=== PATIENT | female | born 1995 | race Caucasian/White ===

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

== ENCOUNTER 2017-02-02 13:42 | Emergency (ER) | payer OTHER ==
[~2017-02-02] VITALS: Ht 162.6 cm; Wt 148.0 kg
[~2017-02-02 13:42] MED LIST changes: +PANT40TA2 PO; -PRT/40 PO
[2017-02-02 13:45] VITALS: Ht 162.6 cm; Wt 148.0 kg
[2017-02-02] MEDS ORDERED: SODIUM CHLORIDE 0.9% 1000ML 1,000 ML IV STA (14:53)
[2017-02-02] MEDS ORDERED: ALBUT/IPRATROP 3MG/0.5MG NEB 3 ML VIAL INH STA (14:53)
--- NOTE | 2017-02-02 14:53 | EMERGENCY ROOM VISIT NOTE ---
History First contact with patient: 14:44 Chief Complaint: SHORTNESS OF BREATH Stated Complaint: COUGH,SOB,BODY ACHES,FEVER History of Present Illness The patient is a 21 year old female who presents to the Emergency Room via private vehicle with complaints of "cough, shortness of breath, body aches, fever". The patient states that 1 week ago she dropped a migraine headache. She states that 3 days ago she developed vomiting, and woke up yesterday with diffuse body aches. Then chest tightness and no ear pain. She states that her throat feels swollen and she has a history of asthma. She cannot get in to see her medical services coordinator being as though it is Saturday. She feels as though this illness is making her asthma worse. She at home uses Dulera and Spiriva. She denies any abdominal pain, urinary symptoms, vaginal discharge. She last used ibuprofen 6 AM this morning. Review of Systems A complete 10-point Review of Systems was discussed with the patient, with pertinent positives and negatives listed in the History of Present Illness. All remaining Review of Systems questions can be considered negative unless otherwise specified. 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 (4) GERD (gastroesophageal reflux disease) (5) Nicotine Dependence, Cigarettes, Uncomplicated (6) Obesity, Nos (7) Pneumonia (8) Pneumonia, Unspecified Organism (9) Polycystic Ovarian Syndrome (10) Sleep Apnea, Unspecified Family History Cancer Diabetes mellitus Gallbladder disease Heart disease Hypertension Kidney disease Kidney stones Lung disease Seizures Social History Smoking Status: Current Every Day Smoker Alcohol Use: none Drug Use: none Marital Status: single Housing Status: lives with family Occupation Status: student Current/Historical Medications Scheduled Control Pills ( Control Pills), 1 TAB PO DAILY Cholecalciferol (Vitamin D3), 2,000 INTER.UNIT PO DAILY Doxycycline (Monohydrate) (Doxycycline), 100 MG PO BID Levofloxacin (Levaquin), 1 TAB PO DAILY Loratadine (Claritin), 10 MG PO DAILY Metformin HCl (Metformin HCl), 250 MG PO BID Mometasone Furoate-Formoterol (Dulera 200/5 Mcg), 2 PUFFS INH BID Montelukast Sod (Montelukast Sodium), 10 MG PO QPM Multiple Vitamins W/ Minerals (Hair/Skin/Nails), 1 TAB PO DAILY Pantoprazole (Pantoprazole Sodium), 40 MG PO QAM Prednisone (Prednisone), 0 PO DAILY Ranitidine Hcl (Zantac), 300 MG PO HS Scheduled PRN Acetaminophen (Tylenol), 325-650 MG PO DIRECTED PRN for Pain or Fever Albuterol Hfa (Ventolin Hfa), 2 PUFFS INH Q4H PRN for Wheezing Epinephrine (Epipen 2-Jorge), 0.3 MG IM UD PRN for ALLERGIC REACTION Ipratropium [place] (Atrovent 0.02% Soln), 1 VIAL NEB Q4H PRN for SOB/Wheezing Ipratropium-Albuterol (Combivent Respimat), 1 PUFF INH Q4H PRN for Cough,SOB/ Wheezing Levalbuterol Hcl (Levalbuterol), 1.25 MG NEB Q4H PRN for SOB/Wheezing Naproxen (Naprosyn), 500 MG PO BID PRN for Pain Physical Exam Vital Signs Date Time Temp Pulse Resp B/P (MAP) Pulse Ox O2 Delivery O2 Flow Rate FiO2 02/02/17 17:57 102 20 136/78 96 Room Air 02/02/17 17:05 102 141/77 96 02/02/17 16:35 108 95 02/02/17 16:05 107 93 02/02/17 15:30 20 143/87 02/02/17 15:23 110 02/02/17 15:18 20 110/71 02/02/17 15:12 94 Room Air 02/02/17 13:45 37.1 116 20 136/76 94 Room Air Physical Exam VITAL SIGNS - Vital signs and nursing notes were reviewed. Stable. Tachycardic. O2 sat 94%. GENERAL -21-year-old female appearing her stated age who is in no acute distress. Communicates well with provider and answers questions appropriately. SKIN - Without rashes. No petechial rashes. HEAD - NC/AT. EYES - PERRL with EOMI bilaterally. Sclera anicteric. EARS - No deformities of external structures noted on gross examination bilaterally. No pain elicited with palpation of the tragus bilaterally. External auditory canals without discharge or otorrhea. Tympanic membranes pearly nguyen without retraction or bulging. No fluid or purulent material visualized behind the TM. Handle of malleus, umbo, cone of light, pars tensa/ flaccid all easily visualized. NOSE - Midline and without cyanosis. No epistaxis or purulent drainage noted. MOUTH/OROPHARYNX - Without perioral cyanosis. NECK - Neck with FROM. Supple to palpation. No lymphadenopathy noted. No nuchal rigidity. LUNGS - Chest wall symmetric without accessory muscle use, intercostals retractions, or central cyanosis. Normal vesicular breath sounds CTA B/L. No wheezes, rales, or rhonchi appreciated. CARDIAC - RRR with S1/S2. No murmur, rubs, or gallops appreciated. ABDOMEN - Abdominal contour normal without pulsations or visible masses. BS normoactive all four quadrants. No tenderness, palpable masses, hepatosplenomegaly, or ascites noted. EXTREMITIES - No clubbing or peripheral cyanosis. No pretibial edema present. + 5/5 strength noted in UE/LE bilaterally. NEUROLOGIC - Cranial nerves II through XII grossly intact. Sensory intact to light touch throughout. PSYCH - A&Ox3 and cooperates fully with examiner. Pt is very pleasant and interacts well with examiner. Medical Decision & Procedures ER Provider Diagnostic Interpretation: CT ANGIOGRAPHY OF THE CHEST, PULMONARY EMBOLUS PROTOCOL CLINICAL HISTORY: Dyspnea. Fever. COMPARISON STUDY: Chest CT August 04, 2016. TECHNIQUE: Following IV administration of 98 mL of Optiray-320, helical axial images of the chest were obtained utilizing the pulmonary embolus protocol. Maximal intensity projections and sagittal and coronal reformats were viewed on an independent 3D workstation. IV contrast was administered without complication. A dose lowering technique was utilized adhering to the principles of ALARA. CT DOSE: 656.75 mGy.cm FINDINGS: No central pulmonary embolus is identified. The remainder of the pulmonary arteries are inadequately assessed due to respiratory motion artifact and suboptimal opacification. There is no evidence of thoracic aortic dissection. Size of the heart is normal. There is no pericardial effusion. There is a mildly enlarged right infrahilar lymph node that measures 1 cm in short axis diameter. There is mild bronchial wall thickening with mucus within multiple bilateral lower lobe segmental bronchi. There is mild groundglass opacity within the right middle and right lower lobes. There is no confluent consolidation. No pneumothorax or pleural effusion is present. Bony thorax is unremarkable. There is fatty infiltration of the liver. IMPRESSION: 1. Exam significantly compromised by respiratory motion artifact. No central pulmonary embolus. Remainder of pulmonary arteries inadequately assessed due to artifact. 2. Mild bronchial wall thickening with mucus within multiple bilateral lower lobe segmental bronchi. 3. Minimal groundglass opacity within the right lower lobe and right middle lobe which could reflect atelectasis, air trapping or a mild infectious process. 4. Mildly enlarged right infrahilar lymph node which is nonspecific but likely reactive. Electronically signed by: Jl Jorge M.D. 02/02/2017 5:51 PM Dictated Date/Time: 02/02/2017 5:41 PM CHEST 2 VIEWS ROUTINE CLINICAL HISTORY: Cough, congestion. COMPARISON STUDY: Chest CT August 04, 2016 and chest radiograph November 13, 2016. FINDINGS: Lung volumes are normal. No pneumothorax or pleural effusion is present. There is mild right lower lung airspace opacity. This is likely within the right middle lobe. There is no evidence of pulmonary edema. No pneumothorax or pleural effusion is present. Cardiomediastinal silhouette is normal. There is mild left suprahilar opacity. IMPRESSION: 1. Mild hazy left suprahilar opacity. This could be artifactual however a small area of pneumonia could appear similar. 2. Minimal right middle lobe opacity which favors atelectasis. Electronically signed by: Jl Jorge M.D. 02/02/2017 4:41 PM Dictated Date/Time: 02/02/2017 4:38 PM Laboratory Results 02/02/17 15:05 Red Blood Count 4.72, Mean Corpuscular Volume 85.6, Mean Corpuscular Hemoglobin 28.8, Mean Corpuscular Hemoglobin Concent 33.7, Mean Platelet Volume 9.6, Neutrophils (%) (Auto) 77.5, Lymphocytes (%) (Auto) 8.4, Monocytes (%) (Auto) 9.3, Eosinophils (%) (Auto) 4.2, Basophils (%) (Auto) 0.4, Neutrophils # (Auto) 6.93, Lymphocytes # (Auto) 0.75, Monocytes # (Auto) 0.83, Eosinophils # (Auto) 0.38, Basophils # (Auto) 0.04 02/02/17 15:05 Test 02/02/17 15:05 02/02/17 15:38 White Blood Count 8.95 K/uL (4.8-10.8) Red Blood Count 4.72 M/uL (4.2-5.4) Hemoglobin 13.6 g/dL (12.0-16.0) Hematocrit 40.4 % (37-47) Mean Corpuscular Volume 85.6 fL (80-100) Mean Corpuscular Hemoglobin 28.8 pg (25-34) Mean Corpuscular Hemoglobin Concent 33.7 g/dl (32-36) Platelet Count 317 K/uL (130-400) Mean Platelet Volume 9.6 fL (7.4-10.4) Neutrophils (%) (Auto) 77.5 % Lymphocytes (%) (Auto) 8.4 % Monocytes (%) (Auto) 9.3 % Eosinophils (%) (Auto) 4.2 % Basophils (%) (Auto) 0.4 % Neutrophils # (Auto) 6.93 K/uL (1.4-6.5) Lymphocytes # (Auto) 0.75 K/uL (1.2-3.4) Monocytes # (Auto) 0.83 K/uL (0.11-0.59) Eosinophils # (Auto) 0.38 K/uL (0-0.5) Basophils # (Auto) 0.04 K/uL (0-0.2) RDW Standard Deviation 40.3 fL (36.4-46.3) RDW Coefficient of Variation 12.8 % (11.5-14.5) Immature Granulocyte % (Auto) 0.2 % Immature Granulocyte # (Auto) 0.02 K/uL (0.00-0.02) Anion Gap 6.0 mmol/L (3-11) Est Creatinine Clear Calc Drug Dose 168.6 ml/min Estimated GFR () 127.7 Estimated GFR (Non- 110.2 BUN/Creatinine Ratio 8.5 (10-20) Calcium Level 8.6 mg/dl (8.5-10.1) Magnesium Level 1.9 mg/dl (1.8-2.4) Total Bilirubin 0.2 mg/dl (0.2-1) Aspartate Amino Transf (AST/SGOT) 19 U/L (15-37) Alanine Aminotransferase (ALT/SGPT) 33 U/L (12-78) Alkaline Phosphatase 47 U/L (45-117) Troponin I < 0.015 ng/ml (0-0.045) Total Protein 6.9 gm/dl (6.4-8.2) Albumin 3.4 gm/dl (3.4-5.0) Globulin 3.5 gm/dl (2.5-4.0) Albumin/Globulin Ratio 1.0 (0.9-2) Influenza Type A Antigen Neg for Influ A (NEG) Influenza Type B Antigen Neg for Influ B (NEG) Urine Color YELLOW Urine Appearance CLEAR (CLEAR) Urine pH 7.5 (4.5-7.5) Urine Specific [place] 1.018 (1.000-1.030) Urine Protein NEG (NEG) Urine Glucose (UA) NEG (NEG) Urine Ketones NEG (NEG) Urine Occult Blood NEG (NEG) Urine Nitrite NEG (NEG) Urine Bilirubin NEG (NEG) Urine Urobilinogen NEG (NEG) Urine Leukocyte Esterase SMALL (NEG) Urine WBC (Auto) 5-10 /hpf (0-5) Urine RBC (Auto) 0-4 /hpf (0-4) Urine Hyaline Casts (Auto) 1-5 /lpf (0-5) Urine Epithelial Cells (Auto) >30 /lpf (0-5) Urine Bacteria (Auto) NEG (NEG) Urine Test NEG (NEG) Medications Administered Medications (Trade) Dose Ordered Sig/Miguel Route Start Time Stop Time Status Last Admin Dose Admin Sodium Chloride 1,000 ml @ 999 mls/hr Q1H1M STAT IV 02/02/17 14:53 02/02/17 15:53 DC 02/02/17 15:08 999 MLS/HR Albuterol/ Ipratropium (Duoneb) 3 ml NOW STAT INH 02/02/17 14:53 02/02/17 14:56 DC 02/02/17 15:08 3 ML Ketorolac Tromethamine (Toradol Inj) 30 mg NOW STAT IV 02/02/17 14:58 02/02/17 14:59 DC 02/02/17 15:10 30 MG Medical Decision Patient was seen and evaluated as above. She presents to us today with cough, shortness of breath, body aches and fever. I am familiar with the patient case from her previous visit. She does have a history of asthma of which at times can be debilitating. IV access was initially, and the above workup was performed. She is given Toradol for pain, as well as a DuoNeb and fluids. She was reevaluated and feeling much better. There is no evidence of meningitis or encephalitis on exam. She was clinically declined lumbar puncture. CBC reveals no concerning leukocytosis or anemia. Metabolic panel negative for acute process. Troponin negative. Patient urine negative for acute process. Negative for flu. Chest x-ray reveals potential pneumonia. CT scan of the chest was obtained secondary to her persistent tachycardia and her shortness of breath. This although slightly, compromised by rotation artifact, does not reveal PE. She appears stable for outpatient management and feels comfortable going home. She notes that she does not do well with azithromycin and has other allergies. She states that a regimen of prednisone, doxycycline and Levaquin are what are beneficial to her. She is well aware of the tendon rupture risk. She was aware of all risks and associated difficulties with medication. She is to follow with her medical services coordinator in the upcoming week. She is to return with worsening. She was educated upon management, educated upon worrisome symptoms which to return, had questions answered prior discharge, and was discharged home in good condition. In evaluation treatment this patient following differential diagnoses were entertained: [place], PE, acute asthma exacerbation or recurrence, pneumonia, among others. I suspect given her presentation she likely is experiencing a small pneumonia/bronchitis with an exacerbation of her asthma. Impression Primary Impression: Pneumonia Additional Impression: Asthma with exacerbation Departure Information Dispostion Home / Self-Care Condition GOOD Prescriptions Prednisone (Prednisone) 20 Mg Tab 0 PO DAILY, #18 TAB 3 DAILY FOR 3 DAYS, THEN 2 DAILY FOR 3 DAYS, THEN 1 DAILY FOR 3 DAYS. Prov: Gigi Nance PA-C 02/02/17 Levofloxacin (LEVAQUIN) 750 Mg Tab 1 TAB PO DAILY for 5 Days, #5 TAB Prov: Gigi Nance PA-C 02/02/17 Doxycycline (Monohydrate) (Doxycycline) 100 Mg Cap 100 MG PO BID for 7 Days, #14 TABS Prov: Gigi Nance PA-C 02/02/17 Referrals Jazmin Lackey D.O. (PCP) Patient Instructions My [facility] Additional Instructions You were seen in the emergency department for your fever and cough. At this time it appears to have a small pneumonia. As we discussed you're been prescribed prednisone, Levaquin and doxycycline. These are per your previous prescription from the medical services coordinator. As we discussed please be careful with the steroid in combination with the Levaquin as you are a high increased risk for tendon rupture. Please do not do any strenuous exercise or heavy lifting on this medication. I recommend rest and stay well hydrated. Please call your family doctor to schedule follow-up as well as her medical services coordinator. Please return with any new/concerning symptoms. Problem Qualifiers
[2017-02-02] MEDS ORDERED: KETOROLAC TROMETHAMINE 30 MG/ML VIAL IV STA (14:58)
[2017-02-02 15:12] VITALS: O2SAT 94
[2017-02-02] MEDS ORDERED: ACET-1311 PO (15:15)
[2017-02-02 15:24] LABS: BASO % 0.4 %; BASO ABS # 0.04 K/uL (0-0.2); COMPLETE YES; EOS % 4.2 %; HEMATOCRIT 40.4 % (37-47); IG% 0.2 %; LYMPH % 8.4 %; LYMPH ABS # 0.75 K/uL (1.2-3.4); MEAN CELL VOLUME 85.6 fL (80-100); MEAN CORPUSCULAR HEMOGLOBIN 28.8 pg (25-34); MEAN CORPUSCULAR HGB CONC 33.7 g/dl (32-36); MEAN PLATELET VOLUME 9.6 fL (7.4-10.4); MONO % 9.3 %; NEUT % 77.5 %; PLATELET COUNT 317 K/uL (130-400); RED BLOOD COUNT 4.72 M/uL (4.2-5.4); WHITE BLOOD COUNT 8.95 K/uL (4.8-10.8)
[2017-02-02 15:42] LABS: BLOOD UREA NITROGEN 7 mg/dl (7-18); BUN/CREATININE RATIO 8.5 (10-20); CALCIUM 8.6 mg/dl (8.5-10.1); CARBON DIOXIDE 25 mmol/L (21-32); CHLORIDE 105 mmol/L (98-107); CREATININE 0.78 mg/dl (0.60-1.20); GLUCOSE 92 mg/dl (70-99); MAGNESIUM 1.9 mg/dl (1.8-2.4); SODIUM 136 mmol/L (136-145)
[2017-02-02 15:46] LABS: ALKALINE PHOSPHATASE 47 U/L (45-117); ALT/SGPT 33 U/L (12-78); AST/SGOT 19 U/L (15-37)
[2017-02-02 16:13] LABS: URINE APPEARANCE CLEAR (CLEAR); URINE BILIRUBIN NEG (NEG); URINE COLOR YELLOW; URINE EPITHELIAL CELL AUTO >30 /lpf (0-5); URINE NITRITE NEG (NEG); URINE PH 7.5 (4.5-7.5); URINE SPECIFIC GRAVITY 1.018 (1.000-1.030); UROBILINOGEN NEG (NEG); ZZUR CULT IF INDIC CLEAN CATCH NO
[2017-02-02 16:23] LABS: MANUAL MICROSCOPIC REQUIRED? NO; REVIEW REQ? NO
--- NOTE | 2017-02-02 16:42 | DIAGNOSTIC IMAGING REPORT ---
CHEST 2 VIEWS ROUTINE CLINICAL HISTORY: Cough, congestion. COMPARISON STUDY: Chest CT August 04, 2016 and chest radiograph November 13, 2016. FINDINGS: Lung volumes are normal. No pneumothorax or pleural effusion is present. There is mild right lower lung airspace opacity. This is likely within the right middle lobe. There is no evidence of pulmonary edema. No pneumothorax or pleural effusion is present. Cardiomediastinal silhouette is normal. There is mild left suprahilar opacity. IMPRESSION: 1. Mild hazy left suprahilar opacity. This could be artifactual however a small area of pneumonia could appear similar. 2. Minimal right middle lobe opacity which favors atelectasis. Electronically signed by: Jl Jorge M.D. 02/02/2017 4:41 PM Dictated Date/Time: 02/02/2017 4:38 PM
[2017-02-02] MEDS ORDERED: OPTIRAY 320 IV PRN (17:15)
--- NOTE | 2017-02-02 17:52 | DIAGNOSTIC IMAGING REPORT ---
CT ANGIOGRAPHY OF THE CHEST, PULMONARY EMBOLUS PROTOCOL CLINICAL HISTORY: Dyspnea. Fever. COMPARISON STUDY: Chest CT August 04, 2016. TECHNIQUE: Following IV administration of 98 mL of Optiray-320, helical axial images of the chest were obtained utilizing the pulmonary embolus protocol. Maximal intensity projections and sagittal and coronal reformats were viewed on an independent 3D workstation. IV contrast was administered without complication. A dose lowering technique was utilized adhering to the principles of ALARA. CT DOSE: 656.75 mGy.cm FINDINGS: No central pulmonary embolus is identified. The remainder of the pulmonary arteries are inadequately assessed due to respiratory motion artifact and suboptimal opacification. There is no evidence of thoracic aortic dissection. Size of the heart is normal. There is no pericardial effusion. There is a mildly enlarged right infrahilar lymph node that measures 1 cm in short axis diameter. There is mild bronchial wall thickening with mucus within multiple bilateral lower lobe segmental bronchi. There is mild groundglass opacity within the right middle and right lower lobes. There is no confluent consolidation. No pneumothorax or pleural effusion is present. Bony thorax is unremarkable. There is fatty infiltration of the liver. IMPRESSION: 1. Exam significantly compromised by respiratory motion artifact. No central pulmonary embolus. Remainder of pulmonary arteries inadequately assessed due to artifact. 2. Mild bronchial wall thickening with mucus within multiple bilateral lower lobe segmental bronchi. 3. Minimal groundglass opacity within the right lower lobe and right middle lobe which could reflect atelectasis, air trapping or a mild infectious process. 4. Mildly enlarged right infrahilar lymph node which is nonspecific but likely reactive. Electronically signed by: Jl Jorge M.D. 02/02/2017 5:51 PM Dictated Date/Time: 02/02/2017 5:41 PM
[2017-02-02] MEDS ORDERED: PRED20TA PO (18:06)
[2017-02-02] MEDS ORDERED: LEVO750T23 PO (18:06)
[2017-02-02] MEDS ORDERED: DOXY-300 PO (18:06)
[2017-02-02 18:39] VITALS: BP 141/78; PULSE 101; TEMP 37.1; O2SAT 96
== END 2017-02-02 18:40 | disposition home or self-care (01) ==
LOC: C.EDB 13:42 → C.EDC 18:40
DX: J18.9 Pneumonia, unspecified organism (principal); J45.901 Unspecified asthma with (acute) exacerbation; K21.9 Gastro-esophageal reflux disease without esophagitis; F17.200 Nicotine dependence, unspecified, uncomplicated; Z79.3 Long term (current) use of hormonal contraceptives; Z79.52 Long term (current) use of systemic steroids; Z83.3 Family history of diabetes mellitus; Z82.49 Family history of ischemic heart disease and other diseases of the circulatory system; Z84.1 Family history of disorders of kidney and ureter; Z83.79 Family history of other diseases of the digestive system; Z83.6 Family history of other diseases of the respiratory system; Z82.0 Family history of epilepsy and other diseases of the nervous system

== ENCOUNTER 2019-03-26 08:23 | Inpatient (IN) ==
[2019-03-26] MEDS ORDERED: OXYTOCIN 30 UNITS/500 ML BAG IV PRN ×2 (20:12→20:24)
[2019-03-26 20:30] LABS: Hematocrit (blood only) 38.2 % (37-47); Hemoglobin 12.5 g/dL (12.0-16.0); Mean Corpuscular Hemoglobin 28.2 pg (25-34); Mean Platelet Volume 10.4 fL (7.4-10.4); Platelet Count 305 K/uL (130-400); RDW Coefficient of Variation 17.1 % (11.5-14.5); Red Blood Count 4.44 M/uL (4.2-5.4); White Blood Count 13.29 K/uL (4.8-10.8)
[2019-03-26] MEDS ORDERED: DINOPROSTONE 10 MG INSERT PV ONE (20:30)
[2019-03-26 20:41] LABS: Mean Corpuscular Hgb Conc 32.7 g/dL (32-36)
--- NOTE | 2019-03-26 21:07 | History & Physical Report ---
Date of Service March 26, 2019 Assessment & Plan (1) Supervision of high-risk : (2) Unfavorable cervix in term : (3) Prolonged , antepartum: -Tracing category 1 -Multiple respiratory medications. Coordinating with pharmacy to continue these medications -History of marijuana use in the first trimester , urine drug screen has been sent -Cervidil ripening for 12 hours and then assessment on whether or not to start Pitocin -All questions answered of the patient History of Present Illness Chief Complaint: Cervical ripening Primary Care Provider: Jazmin Lackey DO The patient is a 23-year-old 1 para 0 with an EDC of 22 March by 12- week ultrasound at 40+ weeks gestational age who presents today for cervical ripening. The patient is admitted for postdates induction. The patient has a history of severe asthma. She is on multiple respiratory medications which she has been throughout the . She has done fairly well throughout the with no acute asthmatic attacks. The patient's was dated by 12-week ultrasound. She has a history of depression and was on multiple medications which she discontinued with the . The patient was also using marijuana in a medical fashion. She had a positive urine drug screen at her new OB visit. Patient states that the last time she used marijuana was around late December. Laboratory values for the show blood type of O-, antibody negative RhoGam on 31 December, hepatitis B negative negative cell free DNA screening, negative maternal serum AFP, normal 1 hour Glucola x2, and a negative third trimester beta strep culture. The patient had presented to labor and delivery on 25 March for an attempt at cervical ripening. Cervical [place] could not be placed. Allergies Allergy/AdvReac Type Severity Reaction Status Date / Time bee venom protein (honey bee) Allergy Severe Swelling Verified 03/25/19 10:51 and difficulty breathing. cefuroxime Allergy Intermediate HIVES Verified 03/25/19 10:51 Cephalosporins Allergy Intermediate HIVES Verified 03/25/19 10:51 nickel Allergy Mild RASH Verified 03/25/19 10:51 ragweed pollen Allergy Unknown Asthma Verified 03/25/19 10:51 symptoms. Home Medications Home Medications Medication Instructions Recorded Confirmed Type prenat.vits,prasanna,[id number] 1 tab PO HS 10/08/18 03/26/19 History albuterol sulfate 2.5 mg/0.5 mL 2.5 mg INH QID PRN 02/27/19 03/26/19 History solution for nebulization albuterol sulfate 90 mcg/actuation 2 puffs INH QID PRN 02/27/19 03/26/19 History aerosol inhaler azelastine-fluticasone 1 spray INTNAS BID 02/27/19 03/26/19 History benralizumab 1 SQ 02/27/19 03/25/19 History budesonide-formoterol HFA 160 2 puffs INH BID 02/27/19 03/26/19 History mcg-4.5 mcg/actuation aerosol inhaler famotidine 20 mg tablet 20 mg PO DAILY 02/27/19 03/26/19 History inhalational spacing device #1 ea 02/27/19 03/25/19 History Patient History Social History Preferred Language: Greek Communication Ability: Effective [employer] Required: No Beliefs That Will Affect Care: None marital status: Single Current Living Situation: Parent, Family and Significant Other Current Living Situation Comment: LIVES WITH MOM, GRANDMOTHER, BROTHER AND BOYFRIEND Other Information That Helps Us Care for You: No Feels Safe at Home: Yes Safety Concerns: Feels Safe At This Time Smoking Status: Current every day smoker Tobacco Type: cigarettes ; Cigarettes Per Day: 7 ; Second Hand Exposure: Yes ; Hx Alcohol Use: No Hx Substance Use: No Physical Exam Constitutional: WD/WN, vitals as above Respiratory: Auscultation: lungs clear to auscultation bilaterally Cardiovascular: RRR, no murmur, no edema Extremities: no calf tenderness Gastrointestinal (Abdomen): Gravid, vertex, positive heart tones, estimated weight of 8 pounds Genitourinary: Cervix: Long thick and closed, posterior, Cervidil placed in posterior fornix wrapping around cervix Results & Data Vital Signs (Past 12 Hours) Vital Signs Temp Pulse Resp BP Pulse Ox 03/26/19 19:44 103 H 143/84 H 03/26/19 19:43 95 03/26/19 19:42 101 H 146/97 H 03/26/19 19:34 98.1 F 20 Coding Level of Care Code None Diagnoses Supervision of high-risk O09.90 Unfavorable cervix in term O34.40 Prolonged , antepartum O48.1
[2019-03-26] MEDS ORDERED: ALBUTEROL HFA INHALER 8.5 GM INH PRN (21:13)
[2019-03-26] MEDS ORDERED: IPRATROPIUM BROMIDE/ALBUTEROL respimat INH INH PRN (21:29)
[2019-03-26] MEDS ORDERED: ACETAMINOPHEN 325 MG TAB ONE (23:16)
[2019-03-26] MEDS: ACETAMINOPHEN 325 MG TAB PO PRN (23:19)
[2019-03-26 23:44] LABS: Amphetamines+Metham, Urine Neg (Neg); Barbiturates, Urine Neg (Neg); Benzodiazepine, Urine Neg (Neg); Cocaine, Urine Neg (Neg); MDMA (Ecstacy), Urine Neg (Neg); Methadone, Urine Neg (Neg); Opiate, Urine Neg (Neg); Phencyclidine, Urine Neg (Neg)
[2019-03-27] MEDS: FLUTICASONE/VILANTEROL 200/25MCG 14 PUFFS/INHALER INH SCH (08:18)
[2019-03-27] MEDS: UMECLIDINIUM BROMIDE 62.5MCG/BLISTER 7 PUFFS/INHALER INH SCH (08:18)
[2019-03-27] MEDS: LACTATED RINGER'S 1,000 ML IV PRN ×3 (08:51→19:48)
[2019-03-27] MEDS: NICOTINE 14 MG/24 HR PATCH TD SCH (08:54)
--- NOTE | 2019-03-27 08:58 | Labor Progress Brief Note ---
Date of Service March 27, 2019 Subjective Assuming care of patient. She has had a prolonged course thus far due to closed cervix, schedule based delay, Cervidil overnight. Induction for postdates in morbidly obese 23yo with severe asthma. She is frustrated, tearful at this time. Assessment & Plan (1) Unfavorable cervix in term : Kessler in place, pitocin to start now. Emotional support for patient's frustration with the long process provided. She was grateful to have a meal. Physical Exam Physical Exam: T Cat 1 [place] quiet. Cervix cl/80/-3 Cervidil removed by patient while she voided around 0730. Attempt at that time to place kessler via tactile method was unsuccessful. Patient was offered the opportunity to "take a break," have breakfast. She did so. Then at 0830 I returned and was able to place the kessler using an extra-large speculum, ring forcep on cervix, and passing kessler through os then inflating with 30cc. Results & Data Vital Signs (Past 12 Hours) Vital Signs Temp Pulse Resp BP 03/27/19 08:00 98.2 F 88 22 156/74 H 03/27/19 03:33 98.1 F 94 H 22 118/88 03/27/19 00:53 98.4 F 90 20 134/62 03/26/19 23:13 98.6 F 107 H 20 133/65 Coding Level of Care Code None Diagnoses Unfavorable cervix in term O34.40
[2019-03-27] MEDS: AMOXICILLIN 500 MG CAP PO SCH ×3 (09:40→21:35)
--- NOTE | 2019-03-27 11:44 | Labor Progress Brief Note ---
Date of Service March 27, 2019 Subjective Reason For Note: Routine Evaluation Tolerating Contractions Assessment & Plan (1) Unfavorable cervix in term : PD's IOL. Kessler and pit in place now and progress noted. Epidural on request. Physical Exam Genitourinary: Manual OB Exam: + cervical dilation (Kessler remains in place despite gentle tug. Cervix examined around kessler.) 1 cm, + cervical effacement 90% and + station high OB Exam Monitor Tracing: + external FHT monitor used, + external uterine monitor used and + category I Results & Data Vital Signs (Past 12 Hours) Vital Signs Temp Pulse Resp BP 03/27/19 10:50 90 144/81 H 03/27/19 10:48 22 03/27/19 10:30 22 03/27/19 10:00 22 03/27/19 09:38 95 H 146/95 H 03/27/19 09:37 22 03/27/19 08:00 98.2 F 88 22 156/74 H 03/27/19 03:33 98.1 F 94 H 22 118/88 03/27/19 00:53 98.4 F 90 20 134/62 Coding Level of Care Code None Diagnoses Unfavorable cervix in term O34.40
[2019-03-27] MEDS: ACETAMINOPHEN 325 MG TAB PO PRN (13:23)
[2019-03-27] MEDS ORDERED: fentaNYL citrate 100 MCG/2 ML VIAL ONE (13:45)
[2019-03-27] MEDS ORDERED: ePHEDrine sulfate 50 MG/ML AMP ONE (13:45)
[2019-03-27] MEDS ORDERED: BUPIVACAINE 0.25% 30 ML VIAL ONE (13:45)
[2019-03-27] MEDS ORDERED: fentaNYL 2MCG/ML ROPIV 1.25MG/ML 100 ML BAG EPI ONE (13:46)
--- NOTE | 2019-03-27 13:50 | Labor Progress Brief Note ---
Date of Service March 27, 2019 Subjective Tolerating Contractions Assessment & Plan (1) Unfavorable cervix in term : Patient desires epidural now, will AROM after. Physical Exam Genitourinary: Manual OB Exam: + cervical dilation (Kessler removed.) 4 cm, + cervical effacement (thicker now that kessler is out) 50% and + station high OB Exam Monitor Tracing: + external FHT monitor used, + external uterine monitor used and + category I Results & Data Vital Signs (Past 12 Hours) Vital Signs Temp Pulse Resp BP 03/27/19 13:11 22 03/27/19 11:53 87 135/79 03/27/19 11:49 98.2 F 22 03/27/19 11:41 22 03/27/19 10:50 90 144/81 H 03/27/19 10:48 22 03/27/19 10:30 22 03/27/19 10:00 22 03/27/19 09:38 95 H 146/95 H 03/27/19 09:37 22 03/27/19 08:00 98.2 F 88 22 156/74 H 03/27/19 03:33 98.1 F 94 H 22 118/88 Coding Level of Care Code None Diagnoses Unfavorable cervix in term O34.40
--- NOTE | 2019-03-27 13:54 | Anesthesiology Consultation ---
Date of Service March 27, 2019 Assessment & Plan ASA ASA3 Proposed Anesthesia Anesthesia Type: Labor Epidural Risk / Benefits Reviewed With: PT / POA / Parent / Guardian, Accepts Plan and Informed Consent Obtained History Height/Weight Height: 5 ft 4.5 in Weight: 147.418 kg Allergies Allergy/AdvReac Type Severity Reaction Status Date / Time bee venom protein (honey bee) Allergy Severe Swelling Verified 03/25/19 10:51 and difficulty breathing. cefuroxime Allergy Intermediate HIVES Verified 03/25/19 10:51 Cephalosporins Allergy Intermediate HIVES Verified 03/25/19 10:51 nickel Allergy Mild RASH Verified 03/25/19 10:51 ragweed pollen Allergy Unknown Asthma Verified 03/25/19 10:51 symptoms. Medications Home Medications Medication Instructions Recorded Confirmed Last Taken prenat.vits,prasanna,[id number]-[id number] 1 tab PO HS 10/08/18 03/26/19 03/25/19 albuterol sulfate 90 mcg/actuation 2 puffs INH QID PRN 02/27/19 03/26/19 03/26/19 aerosol inhaler azelastine-fluticasone 1 spray INTNAS BID 02/27/19 03/26/19 03/26/19 budesonide-formoterol HFA 160 2 puffs INH BID 02/27/19 03/26/19 03/26/19 mcg-4.5 mcg/actuation aerosol inhaler famotidine 20 mg tablet 20 mg PO DAILY 02/27/19 03/26/19 03/26/19 inhalational spacing device #1 ea 02/27/19 03/25/19 Unknown benralizumab [Fasenra] 30 mg SUBCUT Q8WK 03/26/19 03/26/19 02/11/19 ipratropium-albuterol [Combivent 1 puff INHALATION Q4 PRN 03/26/19 03/26/19 Unknown Respimat] tiotropium bromide [Spiriva 2 puff INHALATION DAILY 03/26/19 03/26/19 03/26/19 Respimat] Active Medications Generic Name Dose Route Start Last Admin Trade Name Freq PRN Reason Stop Dose Admin Acetaminophen 650 mg 03/26/19 23:15 03/27/19 13:23 Tylenol PO 04/25/19 23:14 650 mg Q4H PRN Administration Pain Amoxicillin 500 mg 03/27/19 14:00 03/27/19 09:40 Amoxil PO 03/29/19 13:59 500 mg TID PARESH Administration Fluticasone/Vilanterol 1 puffs 03/27/19 09:00 03/27/19 08:18 Breo Ellipta 200/25 Mcg Inh INH 04/26/19 08:59 1 puffs DAILY PARESH Administration Protocol Lactated Ringer's 1,000 mls @ 125 mls/hr 03/26/19 20:12 03/27/19 13:39 Lr IV 03/28/19 20:11 999 mls/hr .Q8H PRN Infusion L&D Protocol Protocol Oxytocin 30 units in 500 mls @ 9 mls/hr 03/26/19 20:24 03/27/19 12:30 Pitocin IV 04/25/19 20:23 0.54 units/hr .Q24H PRN 9 mls/hr Labor Induction/Augmentation Titration Protocol 0.54 UNITS/HR Nicotine 14 mg 03/27/19 09:00 03/27/19 08:54 Nicoderm Cq TD 04/26/19 08:59 14 mg QAM PARESH Administration Umeclidinium [place] 1 puffs 03/27/19 09:00 03/27/19 08:18 Incruse Ellipta INH 04/26/19 08:59 1 puffs QAM PARESH Administration Protocol Past Medical History Medical History Anxiety Asthma INHALERS DAILY, PRN AND NEBULIZER PRN Depression Dysphagia (Inactive) Encounter for pre-operative examination GERD (gastroesophageal reflux disease) PCOS (polycystic ovarian syndrome) Post traumatic stress disorder Exercise / Class Metabolic Activity II 4-5 Yardwork/Stairs/Walk up hill Past Family History Family History Grandfather Family history of reaction to anesthesia ASPIRATED DURING SURGERY, UNSURE OF WHAT KIND OF SURGERY Diabetes Hypertension Grandfather Family history of diabetes mellitus BOTH--PATERNAL AND MATERNAL Heart disease Grandmother Family history of diabetes mellitus BOTH--PATERNAL AND MATERNAL Family/Other Family hx of colon cancer MATERNAL UNCLE Heart disease Brother Asthma Uncle Colorectal cancer Mother Gestational diabetes Other Cancer Depression Dyslipidemia Kidney disease Lung disease Past Surgical History Surgical History History of endoscopic sinus surgery 2015 @ [facility] [place] History of tonsillectomy and adenoidectomy Past Anesthesia History No Hx of Anesthesia Complications and No Family Hx of Anesthesia Complications History of PONV No Hx of PONV and No Hx of Motion Sickness Social History Smoking Status: Current every day smoker tobacco type: cigarettes Smoking cigarettes per day: 7 Hx Alcohol Use: No Hx Substance Use: No substance use type: marijuana Substance Use Type Other:: Last use was Thanksgiving Review of Systems denies fever/cough/ colds/ chest pain/ SOB/ HARMAN Constitutional: no fever and no chills Respiratory: no cough and no dyspnea denies HARMAN Cardiovascular: no chest pain and no dyspnea on exertion Physical Exam Vital Signs Last Vital Signs Temp 36.8 C 03/27/19 11:49 Pulse 87 03/27/19 11:53 Resp 22 03/27/19 13:11 BP 135/79 03/27/19 11:53 Pulse Ox 95 03/26/19 19:43 ENMT Mouth: no TMJ abnormality and no dentition abnormality Thyromental Distance: > or= 3.5 Finger Breadths Mallampati Class: II Neck neck extension not limited Respiratory normal respiratory effort; no respiratory distress Auscultation: lungs clear to auscultation bilaterally Cardiovascular Rate/Rhythm: regular rate and regular rhythm Neurologic moves all extremities Psychiatric Orientation: alert and oriented x 3 Testing Laboratory Results 03/26/19 20:23
[2019-03-27] MEDS ORDERED: NALOXONE HCL 0.4 MG/1 ML VIAL/CARP IV PRN (13:58)
[2019-03-27] MEDS ORDERED: NALOXONE HCL 1 MG in SODIUM CHLORIDE 0.9% 1000ML 1,000 ML IV PRN (13:58)
[2019-03-27] MEDS ORDERED: NALBUPHINE HCL INJ 10 MG/ML AMP IV PRN (13:58)
[2019-03-27] MEDS ORDERED: ONDANSETRON INJ 2 MG/ML 2 ML VIAL IV PRN (13:58)
[2019-03-27] MEDS ORDERED: ePHEDrine sulfate 50 MG/ML AMP IV PRN (13:58)
[2019-03-27] MEDS ORDERED: DiphenhydrAMINE HCL 50 MG/ML VIAL IV PRN (13:58)
[2019-03-27] MEDS: fentaNYL 2MCG/ML ROPIV 1.25MG/ML 100 ML BAG EPI PRN ×2 (14:25→21:38)
--- NOTE | 2019-03-27 18:12 | Labor Progress Brief Note ---
Date of Service March 27, 2019 Subjective Comfortable with epidural, resting L lateral. Assessment & Plan (1) Unfavorable cervix in term : Patient making progress. BP noted past two hours markedly elevated compared to prior, though patient has no headache, RUQ pain or vision change. Morbid obesity limits ability to assess edema. Will try adjusting cuff as this is only occurring with smaller cuff that is in use since about 4pm per RN. Need extra-large cuff that was being used previously and is appropriate for this patient. (Cuff just changed and 140/67 first pressure after changing to apporpriate cuff.) Physical Exam Physical Exam: FHT Cat 1, some early decels noted. IUPC and FSE working correctly, MVU 200-250 and at goal. Patient not examined vaginally at this time. Results & Data Vital Signs (Past 12 Hours) Vital Signs Temp Pulse Resp BP Pulse Ox 03/27/19 18:03 97 H 99 03/27/19 18:02 94 H 192/77 H 03/27/19 17:58 91 H 97 03/27/19 17:53 100 H 98 03/27/19 17:48 91 H 99 03/27/19 17:47 158/72 H 03/27/19 17:43 94 H 99 03/27/19 17:38 99 H 99 03/27/19 17:33 97 H 99 03/27/19 17:32 100 H 153/74 H 03/27/19 17:28 96 H 99 03/27/19 17:23 97 H 98 03/27/19 17:18 95 H 99 03/27/19 17:17 101 H 160/74 H 03/27/19 17:13 94 H 100 03/27/19 17:08 97 H 100 03/27/19 17:03 92 H 99 03/27/19 17:02 93 H 150/65 H 03/27/19 16:58 96 H 100 03/27/19 16:53 96 H 99 03/27/19 16:48 99 H 100 03/27/19 16:47 101 H 153/74 H 91 03/27/19 16:43 98 H 100 03/27/19 16:38 96 H 100 03/27/19 16:37 91 H 178/79 H 03/27/19 16:36 95 H 180/93 H 03/27/19 16:33 96 H 96 03/27/19 16:30 98.1 F 22 03/27/19 16:28 100 H 100 03/27/19 16:23 98 H 136/80 100 03/27/19 16:18 114 H 98 03/27/19 16:15 22 03/27/19 16:13 100 H 98 03/27/19 16:08 95 H 99 03/27/19 16:03 102 H 98 03/27/19 16:02 98 H 134/70 03/27/19 15:58 100 H 98 03/27/19 15:53 101 H 98 03/27/19 15:48 105 H 98 03/27/19 15:47 111 H 141/67 H 03/27/19 15:43 100 H 98 03/27/19 15:38 112 H 97 03/27/19 15:33 110 H 132/65 97 03/27/19 15:30 22 03/27/19 15:28 107 H 97 03/27/19 15:23 103 H 97 03/27/19 15:18 112 H 99 03/27/19 15:17 100 H 123/63 03/27/19 15:13 99 H 99 03/27/19 15:08 104 H 99 03/27/19 15:03 107 H 99 03/27/19 15:02 101 H 125/65 03/27/19 15:00 22 03/27/19 14:58 104 H 99 03/27/19 14:53 103 H 99 03/27/19 14:48 112 H 135/74 99 03/27/19 14:43 99 H 98 03/27/19 14:38 114 H 97 03/27/19 14:33 104 H 98 03/27/19 14:31 102 H 134/67 89 L 03/27/19 14:28 101 H 132/63 97 03/27/19 14:26 104 H 129/63 03/27/19 14:24 101 H 131/65 03/27/19 14:23 106 H 98 03/27/19 14:22 100 H 136/68 03/27/19 14:20 103 H 141/72 H 03/27/19 14:18 106 H 137/71 98 03/27/19 14:13 96 H 97 03/27/19 14:10 110 H 174/91 H 03/27/19 14:08 113 H 99 03/27/19 14:03 101 H 100 03/27/19 13:58 98 H 100 03/27/19 13:11 22 03/27/19 11:53 87 135/79 03/27/19 11:49 98.2 F 22 03/27/19 11:41 22 03/27/19 10:50 90 144/81 H 03/27/19 10:48 22 03/27/19 10:30 22 03/27/19 10:00 22 03/27/19 09:38 95 H 146/95 H 03/27/19 09:37 22 03/27/19 08:00 98.2 F 88 22 156/74 H Coding Level of Care Code None Diagnoses Unfavorable cervix in term O34.40
[2019-03-27 18:41] LABS: Basophils # (auto) 0.01 K/uL (0-0.2); Basophils % (auto) 0.1 %; Hematocrit (blood only) 35.8 % (37-47); Hemoglobin 11.8 g/dL (12.0-16.0); Immature Granulocytes # (auto) 0.03 K/uL (0.00-0.02); Immature Granulocytes % (auto) 0.3 %; Lymphocytes # (auto) 1.73 K/uL (1.2-3.4); Lymphocytes % (auto) 16.8 %; Mean Corpuscular Hemoglobin 27.7 pg (25-34); Mean Platelet Volume 9.9 fL (7.4-10.4); Monocytes # (auto) 1.01 K/uL (0.11-0.59); Monocytes % (auto) 9.8 %; Neutrophils # (auto) 7.51 K/uL (1.4-6.5); Platelet Count 274 K/uL (130-400); RDW Coefficient of Variation 15.8 % (11.5-14.5); RDW Standard Deviation 48.7 fL (36.4-46.3); Red Blood Count 4.26 M/uL (4.2-5.4); White Blood Count 10.29 K/uL (4.8-10.8)
[2019-03-27 19:03] LABS: Alanine Aminotransferase 13 U/L (12-78); Aspartate Aminotransferase 12 U/L (15-37); Creatinine Clr Calc Pharmacy 282.4 ml/min; Est GFR (African American) > 150.0; Est GFR (Non-African American) 142.2; Uric Acid 4.3 mg/dl (2.6-7.2)
--- NOTE | 2019-03-27 23:17 | Labor Progress Brief Note ---
Date of Service March 27, 2019 Subjective Comfortable with epidural Assessment & Plan (1) Unfavorable cervix in term : BP generally in normal to low-HTN range with correct cuff. Labs reassuring. Has met gHTN but is moving towards delivery. Cervical progress occurring but very slow. Discussed with patient that at this point I am beginning to suspect CPD and prepared her for the possibility that a will ultimately be required. Thus far status is acceptable to continue laboring which she wants to do. Will try to break through the dysfunctional contraction pattern by allowing a pitocin washout period and then restarting pit and increasing gradually again. Physical Exam Physical Exam: FHT Cat 1 with early decels, normal baseline, mod sunday, occ accels. [place] irregular pattern with coupling, tripleting and long spaces. MVU averaging 250 despite odd pattern. Results & Data Vital Signs (Past 12 Hours) Vital Signs Temp Pulse Resp BP Pulse Ox 03/27/19 23:08 109 H 97 03/27/19 23:03 101 H 136/73 98 03/27/19 22:58 96 H 96 03/27/19 22:53 97 H 95 03/27/19 22:48 99 H 95 03/27/19 22:47 98 H 121/64 94 03/27/19 22:43 97 H 98 03/27/19 22:38 94 H 95 03/27/19 22:37 98 H 93 03/27/19 22:33 94 H 95 03/27/19 22:32 96 H 127/72 03/27/19 22:31 84 94 03/27/19 22:28 99 H 97 03/27/19 22:25 96 H 94 03/27/19 22:23 110 H 99 03/27/19 22:18 93 H 97 03/27/19 22:17 93 H 133/69 03/27/19 22:13 95 H 95 03/27/19 22:08 92 H 95 03/27/19 22:03 95 H 98 03/27/19 22:02 103 H 135/70 03/27/19 21:58 96 H 96 03/27/19 21:53 95 H 97 03/27/19 21:49 111 H 93 03/27/19 21:48 103 H 96 03/27/19 21:47 101 H 142/74 H 03/27/19 21:43 99 H 96 03/27/19 21:38 99 H 96 03/27/19 21:36 106 H 93 03/27/19 21:33 104 H 141/74 H 96 03/27/19 21:30 98.2 F 18 03/27/19 21:28 102 H 96 03/27/19 21:23 100 H 97 03/27/19 21:18 95 H 98 03/27/19 21:17 95 H 139/75 03/27/19 21:13 92 H 98 03/27/19 21:08 102 H 97 03/27/19 21:03 89 99 03/27/19 21:02 96 H 143/73 H 03/27/19 20:58 96 H 98 03/27/19 20:53 94 H 98 03/27/19 20:48 102 H 96 03/27/19 20:47 98 H 138/74 03/27/19 20:43 97 H 96 03/27/19 20:38 102 H 99 03/27/19 20:35 108 H 139/80 03/27/19 20:33 98 H 100 03/27/19 20:28 106 H 100 03/27/19 20:23 105 H 99 03/27/19 20:18 101 H 99 03/27/19 20:17 97 H 138/69 03/27/19 20:13 100 H 100 03/27/19 20:08 104 H 100 03/27/19 20:03 104 H 100 03/27/19 20:02 95 H 135/70 03/27/19 19:58 101 H 100 03/27/19 19:53 99 H 100 03/27/19 19:48 105 H 99 03/27/19 19:47 100 H 146/83 H 03/27/19 19:43 100 H 99 03/27/19 19:38 101 H 100 03/27/19 19:33 101 H 157/80 H 100 03/27/19 19:28 97 H 100 03/27/19 19:23 102 H 97 03/27/19 19:20 99.0 F 18 03/27/19 19:18 104 H 96 03/27/19 19:17 99 H 144/79 H 03/27/19 19:13 105 H 96 03/27/19 19:08 96 H 96 03/27/19 19:03 97 H 95 03/27/19 19:02 100 H 142/76 H 03/27/19 18:58 97 H 96 03/27/19 18:53 98 H 95 03/27/19 18:50 97 H 94 03/27/19 18:48 99 H 96 03/27/19 18:47 98 H 142/75 H 03/27/19 18:43 91 H 95 03/27/19 18:38 96 H 96 03/27/19 18:33 98 H 96 03/27/19 18:32 105 H 136/68 03/27/19 18:28 96 H 98 03/27/19 18:25 98.2 F 22 03/27/19 18:23 91 H 98 03/27/19 18:18 99 H 97 03/27/19 18:17 96 H 132/70 03/27/19 18:13 91 H 97 03/27/19 18:11 91 H 140/67 03/27/19 18:08 93 H 97 03/27/19 18:03 97 H 99 03/27/19 18:02 94 H 192/77 H 03/27/19 17:58 91 H 97 03/27/19 17:53 100 H 98 03/27/19 17:48 91 H 99 03/27/19 17:47 158/72 H 03/27/19 17:43 94 H 99 03/27/19 17:38 99 H 99 03/27/19 17:33 97 H 99 03/27/19 17:32 100 H 153/74 H 03/27/19 17:28 96 H 99 03/27/19 17:23 97 H 98 03/27/19 17:18 95 H 99 03/27/19 17:17 101 H 160/74 H 03/27/19 17:13 94 H 100 03/27/19 17:08 97 H 100 03/27/19 17:03 92 H 99 03/27/19 17:02 93 H 150/65 H 03/27/19 16:58 96 H 100 03/27/19 16:53 96 H 99 03/27/19 16:48 99 H 100 03/27/19 16:47 101 H 153/74 H 91 03/27/19 16:43 98 H 100 03/27/19 16:38 96 H 100 03/27/19 16:37 91 H 178/79 H 03/27/19 16:36 95 H 180/93 H 03/27/19 16:33 96 H 96 03/27/19 16:30 98.1 F 22 03/27/19 16:28 100 H 100 03/27/19 16:23 98 H 136/80 100 03/27/19 16:18 114 H 98 03/27/19 16:15 22 03/27/19 16:13 100 H 98 03/27/19 16:08 95 H 99 03/27/19 16:03 102 H 98 03/27/19 16:02 98 H 134/70 03/27/19 15:58 100 H 98 03/27/19 15:53 101 H 98 03/27/19 15:48 105 H 98 03/27/19 15:47 111 H 141/67 H 03/27/19 15:43 100 H 98 03/27/19 15:38 112 H 97 03/27/19 15:33 110 H 132/65 97 03/27/19 15:30 22 03/27/19 15:28 107 H 97 03/27/19 15:23 103 H 97 03/27/19 15:18 112 H 99 03/27/19 15:17 100 H 123/63 03/27/19 15:13 99 H 99 03/27/19 15:08 104 H 99 03/27/19 15:03 107 H 99 03/27/19 15:02 101 H 125/65 03/27/19 15:00 22 03/27/19 14:58 104 H 99 03/27/19 14:53 103 H 99 03/27/19 14:48 112 H 135/74 99 03/27/19 14:43 99 H 98 03/27/19 14:38 114 H 97 03/27/19 14:33 104 H 98 03/27/19 14:31 102 H 134/67 89 L 03/27/19 14:28 101 H 132/63 97 03/27/19 14:26 104 H 129/63 03/27/19 14:24 101 H 131/65 03/27/19 14:23 106 H 98 03/27/19 14:22 100 H 136/68 03/27/19 14:20 103 H 141/72 H 03/27/19 14:18 106 H 137/71 98 03/27/19 14:13 96 H 97 03/27/19 14:10 110 H 174/91 H 03/27/19 14:08 113 H 99 03/27/19 14:03 101 H 100 03/27/19 13:58 98 H 100 03/27/19 13:11 22 03/27/19 11:53 87 135/79 03/27/19 11:49 98.2 F 22 03/27/19 11:41 22 Coding Level of Care Code None Diagnoses Unfavorable cervix in term O34.40
[2019-03-28] MEDS: LACTATED RINGER'S 1,000 ML IV PRN (02:12)
--- NOTE | 2019-03-28 03:36 | Labor Progress Brief Note ---
Date of Service March 28, 2019 Subjective Comfortable with epidural, patient sleeping currently. Assessment & Plan (1) Unfavorable cervix in term : Increasing pitocin back to target MVU 200-250. Not adequate again yet, so no exam at this time. Continue titrating pit back to adequate. Physical Exam Genitourinary: OB Exam Monitor Tracing: + external uterine monitor used (Q5- 6min. Pit @ 3) and + category I (130 mod sunday +acc + early decels w/ ctx) Results & Data Vital Signs (Past 12 Hours) Vital Signs Temp Pulse Resp BP Pulse Ox 03/28/19 03:29 107 H 94 03/28/19 03:28 98 H 92 03/28/19 03:24 95 H 94 03/28/19 03:23 97 H 95 03/28/19 03:18 98 H 94 03/28/19 03:17 99 H 102/62 94 03/28/19 03:13 99 H 96 03/28/19 03:12 98 H 94 03/28/19 03:08 98 H 93 03/28/19 03:03 99 H 94 03/28/19 03:02 100 H 110/57 L 03/28/19 02:58 98 H 94 03/28/19 02:53 100 H 93 03/28/19 02:48 99 H 94 03/28/19 02:47 99 H 113/57 L 03/28/19 02:43 99 H 93 03/28/19 02:38 100 H 94 03/28/19 02:33 98 H 114/66 94 03/28/19 02:29 98 H 94 03/28/19 02:28 103 H 95 03/28/19 02:23 99 H 94 03/28/19 02:22 98 H 94 03/28/19 02:18 100 H 95 03/28/19 02:17 99 H 124/61 03/28/19 02:16 99 H 94 03/28/19 02:13 98 H 96 03/28/19 02:11 101 H 94 03/28/19 02:08 99 H 94 03/28/19 02:05 100 H 94 03/28/19 02:03 98 H 93 03/28/19 02:02 103 H 128/64 03/28/19 01:58 88 93 03/28/19 01:53 95 H 93 03/28/19 01:50 97 H 94 03/28/19 01:48 96 H 123/59 L 94 03/28/19 01:44 94 H 94 03/28/19 01:43 94 H 93 03/28/19 01:38 97 H 93 03/28/19 01:36 94 H 94 03/28/19 01:33 94 H 95 03/28/19 01:32 103 H 125/62 03/28/19 01:30 99 H 94 03/28/19 01:28 98 H 94 03/28/19 01:23 98 H 94 03/28/19 01:18 97 H 95 03/28/19 01:17 99 H 120/62 03/28/19 01:13 98 H 95 03/28/19 01:08 94 H 95 03/28/19 01:05 98.6 F 18 03/28/19 01:03 90 96 03/28/19 01:02 96 H 137/83 03/28/19 00:58 90 95 03/28/19 00:57 98 H 94 03/28/19 00:53 97 H 96 03/28/19 00:48 85 145/89 H 96 03/28/19 00:46 95 H 94 03/28/19 00:43 98 H 95 03/28/19 00:41 99 H 94 03/28/19 00:38 95 H 95 03/28/19 00:36 94 H 94 03/28/19 00:33 86 131/69 96 03/28/19 00:30 99 H 94 03/28/19 00:28 96 H 95 03/28/19 00:23 97 H 95 03/28/19 00:20 96 H 94 03/28/19 00:18 92 H 96 03/28/19 00:17 90 141/70 H 03/28/19 00:13 96 H 94 03/28/19 00:08 95 H 94 03/28/19 00:03 95 H 95 03/28/19 00:02 96 H 139/72 03/27/19 23:58 103 H 93 03/27/19 23:57 95 H 94 03/27/19 23:53 94 H 95 03/27/19 23:52 89 94 03/27/19 23:48 97 H 95 03/27/19 23:47 91 H 135/67 03/27/19 23:44 92 H 94 03/27/19 23:43 91 H 95 03/27/19 23:38 91 H 95 03/27/19 23:37 97 H 94 03/27/19 23:33 95 H 96 03/27/19 23:32 93 H 130/68 03/27/19 23:28 95 H 96 03/27/19 23:23 92 H 96 03/27/19 23:18 94 H 96 03/27/19 23:17 105 H 142/78 H 03/27/19 23:16 103 H 93 03/27/19 23:13 93 H 96 03/27/19 23:08 109 H 97 03/27/19 23:03 101 H 136/73 98 03/27/19 23:02 98.6 F 18 03/27/19 22:58 96 H 96 03/27/19 22:53 97 H 95 03/27/19 22:48 99 H 95 03/27/19 22:47 98 H 121/64 94 03/27/19 22:43 97 H 98 03/27/19 22:38 94 H 95 03/27/19 22:37 98 H 93 03/27/19 22:33 94 H 95 03/27/19 22:32 96 H 127/72 03/27/19 22:31 84 94 03/27/19 22:28 99 H 97 03/27/19 22:25 96 H 94 03/27/19 22:23 110 H 99 03/27/19 22:18 93 H 97 03/27/19 22:17 93 H 133/69 03/27/19 22:13 95 H 95 03/27/19 22:08 92 H 95 03/27/19 22:03 95 H 98 03/27/19 22:02 103 H 135/70 03/27/19 21:58 96 H 96 03/27/19 21:53 95 H 97 03/27/19 21:49 111 H 93 03/27/19 21:48 103 H 96 03/27/19 21:47 101 H 142/74 H 03/27/19 21:43 99 H 96 03/27/19 21:38 99 H 96 03/27/19 21:36 106 H 93 03/27/19 21:33 104 H 141/74 H 96 03/27/19 21:30 98.2 F 18 03/27/19 21:28 102 H 96 03/27/19 21:23 100 H 97 03/27/19 21:18 95 H 98 03/27/19 21:17 95 H 139/75 03/27/19 21:13 92 H 98 03/27/19 21:08 102 H 97 03/27/19 21:03 89 99 03/27/19 21:02 96 H 143/73 H 03/27/19 20:58 96 H 98 03/27/19 20:53 94 H 98 03/27/19 20:48 102 H 96 03/27/19 20:47 98 H 138/74 03/27/19 20:43 97 H 96 03/27/19 20:38 102 H 99 03/27/19 20:35 108 H 139/80 03/27/19 20:33 98 H 100 03/27/19 20:28 106 H 100 03/27/19 20:23 105 H 99 03/27/19 20:18 101 H 99 03/27/19 20:17 97 H 138/69 03/27/19 20:13 100 H 100 03/27/19 20:08 104 H 100 03/27/19 20:03 104 H 100 03/27/19 20:02 95 H 135/70 03/27/19 19:58 101 H 100 03/27/19 19:53 99 H 100 03/27/19 19:48 105 H 99 03/27/19 19:47 100 H 146/83 H 03/27/19 19:43 100 H 99 03/27/19 19:38 101 H 100 03/27/19 19:33 101 H 157/80 H 100 03/27/19 19:28 97 H 100 03/27/19 19:23 102 H 97 03/27/19 19:20 99.0 F 18 03/27/19 19:18 104 H 96 03/27/19 19:17 99 H 144/79 H 03/27/19 19:13 105 H 96 03/27/19 19:08 96 H 96 03/27/19 19:03 97 H 95 03/27/19 19:02 100 H 142/76 H 03/27/19 18:58 97 H 96 03/27/19 18:53 98 H 95 03/27/19 18:50 97 H 94 03/27/19 18:48 99 H 96 03/27/19 18:47 98 H 142/75 H 03/27/19 18:43 91 H 95 03/27/19 18:38 96 H 96 03/27/19 18:33 98 H 96 03/27/19 18:32 105 H 136/68 03/27/19 18:28 96 H 98 03/27/19 18:25 98.2 F 22 03/27/19 18:23 91 H 98 03/27/19 18:18 99 H 97 03/27/19 18:17 96 H 132/70 03/27/19 18:13 91 H 97 03/27/19 18:11 91 H 140/67 03/27/19 18:08 93 H 97 03/27/19 18:03 97 H 99 03/27/19 18:02 94 H 192/77 H 03/27/19 17:58 91 H 97 03/27/19 17:53 100 H 98 03/27/19 17:48 91 H 99 03/27/19 17:47 158/72 H 03/27/19 17:43 94 H 99 03/27/19 17:38 99 H 99 03/27/19 17:33 97 H 99 03/27/19 17:32 100 H 153/74 H 03/27/19 17:28 96 H 99 03/27/19 17:23 97 H 98 03/27/19 17:18 95 H 99 03/27/19 17:17 101 H 160/74 H 03/27/19 17:13 94 H 100 03/27/19 17:08 97 H 100 03/27/19 17:03 92 H 99 03/27/19 17:02 93 H 150/65 H 03/27/19 16:58 96 H 100 03/27/19 16:53 96 H 99 03/27/19 16:48 99 H 100 03/27/19 16:47 101 H 153/74 H 91 03/27/19 16:43 98 H 100 03/27/19 16:38 96 H 100 03/27/19 16:37 91 H 178/79 H 03/27/19 16:36 95 H 180/93 H 03/27/19 16:33 96 H 96 03/27/19 16:30 98.1 F 22 03/27/19 16:28 100 H 100 03/27/19 16:23 98 H 136/80 100 03/27/19 16:18 114 H 98 03/27/19 16:15 22 03/27/19 16:13 100 H 98 03/27/19 16:08 95 H 99 03/27/19 16:03 102 H 98 03/27/19 16:02 98 H 134/70 03/27/19 15:58 100 H 98 03/27/19 15:53 101 H 98 03/27/19 15:48 105 H 98 03/27/19 15:47 111 H 141/67 H 03/27/19 15:43 100 H 98 03/27/19 15:38 112 H 97 Coding Level of Care Code None Diagnoses Unfavorable cervix in term O34.40
--- NOTE | 2019-03-28 04:25 | Labor Progress Brief Note ---
Date of Service March 28, 2019 Subjective Comfortable with epidural, patient sleeping currently. Awakened for cervical check. Assessment & Plan (1) Failed induction of labor: Patient has not made dilation beyond 5cm despite many hours of co ntractions that reached adequate MVU. She had a dysfunctional pattern that suggested CPD, and despite efforts to desaturate oxytocin receptors and reset her pattern, she is now coupleting again. status is no longer as reassuring, since the previously brief early decels have begun to prolong across both contractions of a couplet, prompting me to call this Cat 2. Discussed with patient that I doubt additional efforts to induce labor will result in vaginal delivery. She would like to move to instead and I think that is an appropriate choice. We discussed that I will have a second surgeon available to assist at change of shift in a few hours. Given the patient's high BMI and prolonged induction effort, I think that the benefits of an medical office assistant outweigh the risks of the wait. If status dictates that we call in the second surgeon and deliver earlier we will of course do so. She is in agreement. Pitocin to be turned off. Failed induction of labor type: other Qualified Code(s): O61.8 - Other failed induction of labor Physical Exam Genitourinary: Manual OB Exam: + cervical dilation 5 cm, + cervical effacement (75%), + station -1 and + amniotic fluid clear OB Exam Monitor Tracing: + external uterine monitor used and + category II Pit @ 5, [place] coupleting again. 130 mod sunday +acc +early decels that now sometimes stay down through both contractions of a couplet. Results & Data Vital Signs (Past 12 Hours) Vital Signs Temp Pulse Resp BP Pulse Ox 03/28/19 04:13 97 H 97 03/28/19 04:08 95 H 95 03/28/19 04:03 93 H 94 03/28/19 04:02 93 H 134/60 03/28/19 03:58 96 H 94 03/28/19 03:57 93 H 94 03/28/19 03:53 95 H 94 03/28/19 03:50 94 H 94 03/28/19 03:48 92 H 95 03/28/19 03:47 96 H 135/60 03/28/19 03:45 98 H 94 03/28/19 03:43 96 H 95 03/28/19 03:41 100 H 135/67 03/28/19 03:39 99 H 94 03/28/19 03:38 105 H 95 03/28/19 03:33 100 H 95 03/28/19 03:31 97.9 F 18 03/28/19 03:29 107 H 94 03/28/19 03:28 98 H 92 03/28/19 03:24 95 H 94 03/28/19 03:23 97 H 95 03/28/19 03:18 98 H 94 03/28/19 03:17 99 H 102/62 94 03/28/19 03:13 99 H 96 03/28/19 03:12 98 H 94 03/28/19 03:08 98 H 93 03/28/19 03:03 99 H 94 03/28/19 03:02 100 H 110/57 L 03/28/19 02:58 98 H 94 03/28/19 02:53 100 H 93 03/28/19 02:48 99 H 94 03/28/19 02:47 99 H 113/57 L 03/28/19 02:43 99 H 93 03/28/19 02:38 100 H 94 03/28/19 02:33 98 H 114/66 94 03/28/19 02:29 98 H 94 03/28/19 02:28 103 H 95 03/28/19 02:23 99 H 94 03/28/19 02:22 98 H 94 03/28/19 02:18 100 H 95 03/28/19 02:17 99 H 124/61 03/28/19 02:16 99 H 94 03/28/19 02:13 98 H 96 03/28/19 02:11 101 H 94 03/28/19 02:08 99 H 94 03/28/19 02:05 100 H 94 03/28/19 02:03 98 H 93 03/28/19 02:02 103 H 128/64 03/28/19 01:58 88 93 03/28/19 01:53 95 H 93 03/28/19 01:50 97 H 94 03/28/19 01:48 96 H 123/59 L 94 03/28/19 01:44 94 H 94 03/28/19 01:43 94 H 93 03/28/19 01:38 97 H 93 03/28/19 01:36 94 H 94 03/28/19 01:33 94 H 95 03/28/19 01:32 103 H 125/62 03/28/19 01:30 99 H 94 03/28/19 01:28 98 H 94 03/28/19 01:23 98 H 94 03/28/19 01:18 97 H 95 03/28/19 01:17 99 H 120/62 03/28/19 01:13 98 H 95 03/28/19 01:08 94 H 95 03/28/19 01:05 98.6 F 18 03/28/19 01:03 90 96 03/28/19 01:02 96 H 137/83 03/28/19 00:58 90 95 03/28/19 00:57 98 H 94 03/28/19 00:53 97 H 96 03/28/19 00:48 85 145/89 H 96 03/28/19 00:46 95 H 94 03/28/19 00:43 98 H 95 03/28/19 00:41 99 H 94 03/28/19 00:38 95 H 95 03/28/19 00:36 94 H 94 03/28/19 00:33 86 131/69 96 03/28/19 00:30 99 H 94 03/28/19 00:28 96 H 95 03/28/19 00:23 97 H 95 03/28/19 00:20 96 H 94 03/28/19 00:18 92 H 96 03/28/19 00:17 90 141/70 H 03/28/19 00:13 96 H 94 03/28/19 00:08 95 H 94 03/28/19 00:03 95 H 95 03/28/19 00:02 96 H 139/72 03/27/19 23:58 103 H 93 03/27/19 23:57 95 H 94 03/27/19 23:53 94 H 95 03/27/19 23:52 89 94 03/27/19 23:48 97 H 95 03/27/19 23:47 91 H 135/67 03/27/19 23:44 92 H 94 03/27/19 23:43 91 H 95 03/27/19 23:38 91 H 95 03/27/19 23:37 97 H 94 03/27/19 23:33 95 H 96 03/27/19 23:32 93 H 130/68 03/27/19 23:28 95 H 96 03/27/19 23:23 92 H 96 03/27/19 23:18 94 H 96 03/27/19 23:17 105 H 142/78 H 03/27/19 23:16 103 H 93 03/27/19 23:13 93 H 96 03/27/19 23:08 109 H 97 03/27/19 23:03 101 H 136/73 98 03/27/19 23:02 98.6 F 18 03/27/19 22:58 96 H 96 03/27/19 22:53 97 H 95 03/27/19 22:48 99 H 95 03/27/19 22:47 98 H 121/64 94 03/27/19 22:43 97 H 98 03/27/19 22:38 94 H 95 03/27/19 22:37 98 H 93 03/27/19 22:33 94 H 95 03/27/19 22:32 96 H 127/72 03/27/19 22:31 84 94 03/27/19 22:28 99 H 97 03/27/19 22:25 96 H 94 03/27/19 22:23 110 H 99 03/27/19 22:18 93 H 97 03/27/19 22:17 93 H 133/69 03/27/19 22:13 95 H 95 03/27/19 22:08 92 H 95 03/27/19 22:03 95 H 98 03/27/19 22:02 103 H 135/70 03/27/19 21:58 96 H 96 03/27/19 21:53 95 H 97 03/27/19 21:49 111 H 93 03/27/19 21:48 103 H 96 03/27/19 21:47 101 H 142/74 H 03/27/19 21:43 99 H 96 03/27/19 21:38 99 H 96 03/27/19 21:36 106 H 93 03/27/19 21:33 104 H 141/74 H 96 03/27/19 21:30 98.2 F 18 03/27/19 21:28 102 H 96 03/27/19 21:23 100 H 97 03/27/19 21:18 95 H 98 03/27/19 21:17 95 H 139/75 03/27/19 21:13 92 H 98 03/27/19 21:08 102 H 97 03/27/19 21:03 89 99 03/27/19 21:02 96 H 143/73 H 03/27/19 20:58 96 H 98 03/27/19 20:53 94 H 98 03/27/19 20:48 102 H 96 03/27/19 20:47 98 H 138/74 03/27/19 20:43 97 H 96 03/27/19 20:38 102 H 99 03/27/19 20:35 108 H 139/80 03/27/19 20:33 98 H 100 03/27/19 20:28 106 H 100 03/27/19 20:23 105 H 99 03/27/19 20:18 101 H 99 03/27/19 20:17 97 H 138/69 03/27/19 20:13 100 H 100 03/27/19 20:08 104 H 100 03/27/19 20:03 104 H 100 03/27/19 20:02 95 H 135/70 03/27/19 19:58 101 H 100 03/27/19 19:53 99 H 100 03/27/19 19:48 105 H 99 03/27/19 19:47 100 H 146/83 H 03/27/19 19:43 100 H 99 03/27/19 19:38 101 H 100 03/27/19 19:33 101 H 157/80 H 100 03/27/19 19:28 97 H 100 03/27/19 19:23 102 H 97 03/27/19 19:20 99.0 F 18 03/27/19 19:18 104 H 96 03/27/19 19:17 99 H 144/79 H 03/27/19 19:13 105 H 96 03/27/19 19:08 96 H 96 03/27/19 19:03 97 H 95 03/27/19 19:02 100 H 142/76 H 03/27/19 18:58 97 H 96 03/27/19 18:53 98 H 95 03/27/19 18:50 97 H 94 03/27/19 18:48 99 H 96 03/27/19 18:47 98 H 142/75 H 03/27/19 18:43 91 H 95 03/27/19 18:38 96 H 96 03/27/19 18:33 98 H 96 03/27/19 18:32 105 H 136/68 03/27/19 18:28 96 H 98 03/27/19 18:25 98.2 F 22 03/27/19 18:23 91 H 98 03/27/19 18:18 99 H 97 03/27/19 18:17 96 H 132/70 03/27/19 18:13 91 H 97 03/27/19 18:11 91 H 140/67 03/27/19 18:08 93 H 97 03/27/19 18:03 97 H 99 03/27/19 18:02 94 H 192/77 H 03/27/19 17:58 91 H 97 03/27/19 17:53 100 H 98 03/27/19 17:48 91 H 99 03/27/19 17:47 158/72 H 03/27/19 17:43 94 H 99 03/27/19 17:38 99 H 99 03/27/19 17:33 97 H 99 03/27/19 17:32 100 H 153/74 H 03/27/19 17:28 96 H 99 03/27/19 17:23 97 H 98 03/27/19 17:18 95 H 99 03/27/19 17:17 101 H 160/74 H 03/27/19 17:13 94 H 100 03/27/19 17:08 97 H 100 03/27/19 17:03 92 H 99 03/27/19 17:02 93 H 150/65 H 03/27/19 16:58 96 H 100 03/27/19 16:53 96 H 99 03/27/19 16:48 99 H 100 03/27/19 16:47 101 H 153/74 H 91 03/27/19 16:43 98 H 100 03/27/19 16:38 96 H 100 03/27/19 16:37 91 H 178/79 H 03/27/19 16:36 95 H 180/93 H 03/27/19 16:33 96 H 96 03/27/19 16:30 98.1 F 22 03/27/19 16:28 100 H 100 03/27/19 16:23 98 H 136/80 100 03/27/19 16:18 114 H 98 Coding Level of Care Code None Diagnoses Failed induction of labor O61.8 Failed induction of labor type: other
[2019-03-28] MEDS ORDERED: CLINDAMYCIN 900 MG in DEXTROSE 5% 50 ML IV STA (04:34)
[2019-03-28] MEDS: fentaNYL 2MCG/ML ROPIV 1.25MG/ML 100 ML BAG EPI PRN (05:32)
[2019-03-28] MEDS ORDERED: CITRIC ACID/SODIUM CITRATE 15 ML UDC ONE (07:16)
[2019-03-28] MEDS ORDERED: fentaNYL citrate 100 MCG/2 ML VIAL ONE (07:26)
--- NOTE | 2019-03-28 07:27 | Anesthesiology Consultation ---
Date of Service March 28, 2019 Assessment & Plan Chart Review Chart Review: Acceptable Risk for Surgery ASA ASA2 Proposed Anesthesia Anesthesia Type: MAC Epidural Risk / Benefits Reviewed With: PT / POA / Parent / Guardian, Accepts Plan and Informed Consent Obtained History Surgery Operation Date: 03/28/19 07:30 Proposed Procedures p Section in LD - Marine Richard MD Height/Weight Height: 5 ft 4.5 in Weight: 147.418 kg Allergies Allergy/AdvReac Type Severity Reaction Status Date / Time bee venom protein (honey bee) Allergy Severe Swelling Verified 03/25/19 10:51 and difficulty breathing. cefuroxime Allergy Intermediate HIVES Verified 03/25/19 10:51 Cephalosporins Allergy Intermediate HIVES Verified 03/25/19 10:51 nickel Allergy Mild RASH Verified 03/25/19 10:51 ragweed pollen Allergy Unknown Asthma Verified 03/25/19 10:51 symptoms. Medications Home Medications Medication Instructions Recorded Confirmed Last Taken prenat.vits,prasanna,pkl-lvmq-yqeit 1 tab PO HS 10/08/18 03/26/19 03/25/19 albuterol sulfate 90 mcg/actuation 2 puffs INH QID PRN 02/27/19 03/26/19 03/26/19 aerosol inhaler azelastine-fluticasone 1 spray INTNAS BID 02/27/19 03/26/19 03/26/19 budesonide-formoterol HFA 160 2 puffs INH BID 02/27/19 03/26/19 03/26/19 mcg-4.5 mcg/actuation aerosol inhaler famotidine 20 mg tablet 20 mg PO DAILY 02/27/19 03/26/19 03/26/19 inhalational spacing device #1 ea 02/27/19 03/25/19 Unknown benralizumab [Fasenra] 30 mg SUBCUT Q8WK 03/26/19 03/26/19 02/11/19 ipratropium-albuterol [Combivent 1 puff INHALATION Q4 PRN 03/26/19 03/26/19 Unknown Respimat] tiotropium bromide [Spiriva 2 puff INHALATION DAILY 03/26/19 03/26/19 03/26/19 Respimat] Active Medications Generic Name Dose Route Start Last Admin Trade Name Freq PRN Reason Stop Dose Admin Acetaminophen 650 mg 03/26/19 23:15 03/27/19 13:23 Tylenol PO 04/25/19 23:14 650 mg Q4H PRN Administration Pain Amoxicillin 500 mg 03/27/19 14:00 03/27/19 21:35 Amoxil PO 03/29/19 13:59 500 mg TID PARESH Administration Fluticasone/Vilanterol 1 puffs 03/27/19 09:00 03/27/19 08:18 Breo Ellipta 200/25 Mcg Inh INH 04/26/19 08:59 1 puffs DAILY PARESH Administration Protocol Lactated Ringer's 1,000 mls @ 125 mls/hr 03/26/19 20:12 03/28/19 02:30 Lr IV 03/28/19 20:11 125 mls/hr .Q8H PRN Infusion L&D Protocol Protocol Oxytocin 30 units in 500 mls @ 3 mls/hr 03/26/19 20:24 03/28/19 01:10 Pitocin IV 04/25/19 20:23 0.18 units/hr .Q24H PRN 3 mls/hr Labor Induction/Augmentation Titration Protocol 0.18 UNITS/HR Nicotine 14 mg 03/27/19 09:00 03/27/19 08:54 Nicoderm Cq TD 04/26/19 08:59 14 mg QAM PARESH Administration Ropivacaine 100 ml 03/27/19 13:58 03/28/19 05:32 Epidural (L&D) EPI 03/28/19 13:57 100 ml PRN PRN Administration Pain R/T Labor Protocol Umeclidinium [place] 1 puffs 03/27/19 09:00 03/27/19 08:18 Incruse Ellipta INH 04/26/19 08:59 1 puffs QAM PARESH Administration Protocol NPO Last Intake of Fluids Comment: Assume full Last Intake of Solids Comment: Assume full Past Medical History Medical History Anxiety Asthma INHALERS DAILY, PRN AND NEBULIZER PRN Depression Dysphagia (Inactive) Encounter for pre-operative examination GERD (gastroesophageal reflux disease) PCOS (polycystic ovarian syndrome) Post traumatic stress disorder required bipap or asthma age 18, 2 ER visits this year, 2 steroids 2019, 4 abx 2019 Exercise / Class Metabolic Activity II 4-5 Yardwork/Stairs/Walk up hill Past Family History Family History Grandfather Family history of reaction to anesthesia ASPIRATED DURING SURGERY, UNSURE OF WHAT KIND OF SURGERY Diabetes Hypertension Grandfather Family history of diabetes mellitus BOTH--PATERNAL AND MATERNAL Heart disease Grandmother Family history of diabetes mellitus BOTH--PATERNAL AND MATERNAL Family/Other Family hx of colon cancer MATERNAL UNCLE Heart disease Brother Asthma Uncle Colorectal cancer Mother Gestational diabetes Other Cancer Depression Dyslipidemia Kidney disease Lung disease Past Surgical History Surgical History History of endoscopic sinus surgery 2015 @ [facility] [place] History of tonsillectomy and adenoidectomy Past Anesthesia History No Hx of Anesthesia Complications grandfather with aspiration periop in past, no other anes cmp History of PONV No Hx of PONV and No Hx of Motion Sickness Social History Smoking Status: Current every day smoker tobacco type: cigarettes Smoking cigarettes per day: 7 Hx Alcohol Use: No Hx Substance Use: No substance use type: marijuana Substance Use Type Other:: Last use was Thanksgiving Physical Exam Vital Signs Last Vital Signs Temp 37.0 C 03/28/19 05:30 Pulse 97 H 03/28/19 07:11 Resp 18 03/28/19 05:30 BP 141/65 H 03/28/19 06:51 Pulse Ox 97 03/28/19 07:11 epidural insitu, site clean intact functional ENMT Mouth: no TMJ abnormality Thyromental Distance: > or= 3.5 Finger Breadths Mallampati Class: II Neck normal visual inspection and trachea midline; neck extension not limited Respiratory normal respiratory effort Auscultation: lungs clear to auscultation bilaterally Cardiovascular Rate/Rhythm: regular rate and regular rhythm Heart Sounds: no murmur Musculoskeletal Spine: normal cervical ROM Extremities: full ROM of extremities Neurologic moves all extremities Psychiatric Orientation: alert and oriented x 3 Testing Laboratory Results 03/27/19 18:23 03/27/19 18:23
[2019-03-28] MEDS: UMECLIDINIUM BROMIDE 62.5MCG/BLISTER 7 PUFFS/INHALER INH SCH (07:32)
[2019-03-28] MEDS: FLUTICASONE/VILANTEROL 200/25MCG 14 PUFFS/INHALER INH SCH (07:32)
[2019-03-28] MEDS ORDERED: OXYTOCIN 10 UNITS/ML VIAL ONE (08:14)
[2019-03-28] MEDS ORDERED: MoRPHine SULFATE PF 1 MG/ML 10 ML AMP/VIAL ONE (08:14)
[2019-03-28] MEDS ORDERED: METOCLOPRAMIDE HCL INJ 5 MG/ML 2 ML VIAL ONE (08:14)
[2019-03-28] MEDS ORDERED: ONDANSETRON INJ 2 MG/ML 2 ML VIAL ONE (08:14)
[2019-03-28] MEDS ORDERED: ePHEDrine sulfate 50 MG/ML AMP IV PRN (08:26)
[2019-03-28] MEDS ORDERED: LACTATED RINGER'S 500 ML IV PRN (08:26)
[2019-03-28] MEDS ORDERED: NALOXONE HCL 1 MG in SODIUM CHLORIDE 0.9% 1000ML 1,000 ML IV PRN (08:26)
[2019-03-28] MEDS ORDERED: ONDANSETRON INJ 2 MG/ML 2 ML VIAL IV PRN (08:26)
[2019-03-28] MEDS ORDERED: NALBUPHINE HCL INJ 10 MG/ML AMP IV PRN (08:26)
[2019-03-28] MEDS ORDERED: PROMETHAZINE HCL 25 MG in SODIUM CHLORIDE 0.9% 50 ML IV PRN (08:26)
[2019-03-28] MEDS ORDERED: MoRPHine SULFATE 2 MG/ML CARP IV PRN (08:26)
[2019-03-28] MEDS ORDERED: NALOXONE HCL 0.4 MG/1 ML VIAL/CARP IV PRN (08:26)
[2019-03-28] MEDS ORDERED: NALOXONE HCL 0.08 MG in SYRINGE 1.8 ML IV PRN (08:26)
[2019-03-28] MEDS ORDERED: METOCLOPRAMIDE HCL 20 MG in SODIUM CHLORIDE 0.9% 50 ML IV PRN (08:26)
[2019-03-28] MEDS ORDERED: DiphenhydrAMINE HCL 50 MG/ML VIAL IV PRN (08:26)
[2019-03-28] MEDS ORDERED: NO NARCOTICS OR SEDATIVES SCH (08:30)
[2019-03-28] MEDS ORDERED: SODIUM CHLORIDE 0.9% 1000ML 1,000 ML IV SCH (08:30)
[2019-03-28] MEDS ORDERED: PHENYLEPHRINE 100MCG/ML 5ML SYR ONE (08:37)
[2019-03-28] MEDS ORDERED: MoRPHine SULFATE PF 1 MG/ML 10 ML AMP/VIAL INT SPINAL ONE (09:00)
[2019-03-28] MEDS ORDERED: HYDROCORTISONE ACETATE 25 MG SUPP PR PRN (09:08)
[2019-03-28] MEDS ORDERED: BENZOCAINE 20% AER SPR 82.5 GM CAN EXT PRN (09:08)
[2019-03-28] MEDS ORDERED: DIPHTHERIA/TETANUS/PERTUSSIS 0.5 ML SYR/VIAL IM ONE (09:08)
[2019-03-28] MEDS ORDERED: SUPERCREAM 0.870% 15 GM JAR EXT PRN (09:08)
[2019-03-28] MEDS ORDERED: LACTATED RINGER'S 1,000 ML IV SCH (09:15)
--- NOTE | 2019-03-28 09:16 | Operative Report ---
[facility] Post Operative Report Pre & Post Diagnosis Operation Date: 03/28/19 07:30 Pre-Op Diagnosis: Failure to progress Post-Op Diagnosis: Failure to progress I identified the patient and participated in the time-out.: Yes Procedure Operation Date: 03/28/19 07:30 Actual Procedures Primary low transverse Section in LD of live male child at 0834 - Mairne Richard MD Surgeon Marine Richard MD Manager Helpdesk Angelito Estimated Blood Loss 600 Findings Consistent with Post-Op Diagnosis Specimens Cord blood, placenta Anesthesia Type Spinal Complications none Disposition Accompanied Patient To Recovery: Yes Disposition: L&D Description of Procedure The patient was brought to the operating room and placed on the table in the supine position with a leftward tilt, then prepped and draped in standard s terile fashion. A hard time out was taken prior to proceeding. A pfannensteil incision was created sharply and carried down to the fascia using bovie electrocautery. The fascia was nicked and then extended using segovia scissors. The edges of the fascia were grasped with Mike clamps and elevated, then sharply and bluntly dissected off the underlying rectus. The midline of the rectus was identified and bluntly . The peritoneum was bluntly entered, and this entry was extended using pressure from the surgeon's hands. The Yaron O retractor was placed in the usual manner. A bladder flap was created. A transverse lower uterine incision was then created, with final entry to the uterine cavity made in a blunt manner with the hemostat. Clear amniotic fluid was encountered. The head was elevated to the incision and delivered using mild fundal pressure. The cord was doubly clamped and cut, then the vigorous infant was taken to the warmer for therapeutic recreation assistant care. The placenta was manually extracted, then the uterus was gently exteriorized from the maternal abdomen. The cavity was cleared of clot and debris using a dry lap sponge. The angles of the incision were identified with allis clamps, and the hysterotomy was then repaired in running locked fashion using 0-vicryl suture, followed by a second imbricating layer. The tubes and ovaries were examined and found to be normal bilaterally. The posterior gutter was irrigated and cleared of clot and debris. The uterus was then gently re-internalized to the abdomen. Lateral gutters were cleared of clot and debris using a damp lap sponge, and a final exam of the hysterotomy revealed good hemostasis. Josephine was applied with pressure for good measure. The rectus muscles were allowed to reapproximate naturally. The angle of the fascia was grasped with a Mike clamp and the fascia was then repaired in running non-locked fashion with 1-vicryl suture. At the completion of repair, the fascia was examined and found to be free of any defect. The subcutaneous tissue was copiously irrigated and then reapproximated using 3-0 chromic. The skin was then closed using 4-0 monocryl in a running subcuticular fashion and a NATANAEL dressing was applied. The kessler was noted to be draining clear yellow urine as the patient was transferred back to her recovery room. I attest to the content of the Intraoperative Record and any orders documented therein. Any exceptions are noted below.
--- NOTE | 2019-03-28 09:41 | Anesthesiology Progress Note ---
Date of Service March 28, 2019 Anesthesia Post Procedure Vital Signs Vital Signs: Temp Pulse Resp BP Pulse Ox 03/28/19 09:39 110 H 93 03/28/19 09:38 100 H 98 03/28/19 09:33 93 H 149/81 H 96 03/28/19 09:28 89 96 03/28/19 09:23 93 H 147/71 H 94 03/28/19 07:56 108 H 98 03/28/19 07:51 107 H 96 03/28/19 07:47 110 H 127/70 03/28/19 07:46 114 H 95 03/28/19 07:41 106 H 96 03/28/19 07:36 108 H 96 03/28/19 07:32 111 H 121/77 03/28/19 07:31 111 H 96 03/28/19 07:28 36.6 C 22 03/28/19 07:26 100 H 96 03/28/19 07:23 106 H 92 03/28/19 07:21 103 H 96 03/28/19 07:17 111 H 113/74 03/28/19 07:16 99 H 96 03/28/19 07:11 97 H 97 03/28/19 07:06 106 H 96 03/28/19 07:01 101 H 97 03/28/19 06:56 100 H 98 03/28/19 06:52 105 H 90 03/28/19 06:51 111 H 141/65 H 03/28/19 06:49 101 H 175/87 H 03/28/19 06:48 102 H 100 03/28/19 06:43 95 H 94 03/28/19 06:38 98 H 95 03/28/19 06:34 94 H 156/86 H 03/28/19 06:33 97 H 97 03/28/19 06:28 97 H 96 03/28/19 06:27 93 H 94 03/28/19 06:23 103 H 95 03/28/19 06:20 97 H 94 03/28/19 06:18 98 H 142/73 H 94 03/28/19 06:14 77 92 03/28/19 06:13 96 H 95 03/28/19 06:08 89 94 03/28/19 06:03 85 95 03/28/19 06:02 88 161/83 H 93 03/28/19 05:58 75 88 L 03/28/19 05:57 87 94 03/28/19 05:53 95 H 94 03/28/19 05:50 95 H 94 03/28/19 05:48 97 H 95 03/28/19 05:47 100 H 154/74 H 03/28/19 05:45 104 H 93 03/28/19 05:43 101 H 96 03/28/19 05:38 95 H 95 03/28/19 05:37 96 H 94 03/28/19 05:33 91 H 96 03/28/19 05:32 84 126/60 03/28/19 05:30 37.0 C 18 03/28/19 05:28 90 96 03/28/19 05:23 90 95 03/28/19 05:18 91 H 96 03/28/19 05:17 95 H 121/59 L 03/28/19 05:13 90 94 03/28/19 05:12 90 94 03/28/19 05:08 94 H 95 03/28/19 05:04 91 H 94 03/28/19 05:03 92 H 95 03/28/19 05:02 90 130/58 L 03/28/19 04:58 97 H 94 03/28/19 04:53 90 95 03/28/19 04:51 93 H 94 03/28/19 04:48 93 H 96 03/28/19 04:47 92 H 136/63 03/28/19 04:46 95 H 94 03/28/19 04:43 94 H 95 03/28/19 04:38 87 95 03/28/19 04:33 90 97 03/28/19 04:32 91 H 132/64 03/28/19 04:28 95 H 96 03/28/19 04:23 95 H 95 03/28/19 04:18 98 H 142/72 H 98 03/28/19 04:13 97 H 97 03/28/19 04:08 95 H 95 03/28/19 04:03 93 H 94 03/28/19 04:02 93 H 134/60 03/28/19 03:58 96 H 94 03/28/19 03:57 93 H 94 03/28/19 03:53 95 H 94 03/28/19 03:50 94 H 94 03/28/19 03:48 92 H 95 02/01/20 03:47 96 H 135/60 03/28/19 03:45 98 H 94 03/28/19 03:43 96 H 95 03/28/19 03:41 100 H 135/67 03/28/19 03:39 99 H 94 03/28/19 03:38 105 H 95 03/28/19 03:33 100 H 95 03/28/19 03:31 36.6 C 18 03/28/19 03:29 107 H 94 03/28/19 03:28 98 H 92 03/28/19 03:24 95 H 94 03/28/19 03:23 97 H 95 03/28/19 03:18 98 H 94 03/28/19 03:17 99 H 102/62 94 03/28/19 03:13 99 H 96 03/28/19 03:12 98 H 94 03/28/19 03:08 98 H 93 03/28/19 03:03 99 H 94 03/28/19 03:02 100 H 110/57 L 03/28/19 02:58 98 H 94 03/28/19 02:53 100 H 93 03/28/19 02:48 99 H 94 03/28/19 02:47 99 H 113/57 L 03/28/19 02:43 99 H 93 03/28/19 02:38 100 H 94 03/28/19 02:33 98 H 114/66 94 03/28/19 02:29 98 H 94 03/28/19 02:28 103 H 95 03/28/19 02:23 99 H 94 03/28/19 02:22 98 H 94 03/28/19 02:18 100 H 95 03/28/19 02:17 99 H 124/61 03/28/19 02:16 99 H 94 03/28/19 02:13 98 H 96 03/28/19 02:11 101 H 94 03/28/19 02:08 99 H 94 03/28/19 02:05 100 H 94 03/28/19 02:03 98 H 93 03/28/19 02:02 103 H 128/64 03/28/19 01:58 88 93 03/28/19 01:53 95 H 93 03/28/19 01:50 97 H 94 03/28/19 01:48 96 H 123/59 L 94 02/20 01:44 94 H 94 03/28/19 01:43 94 H 93 03/28/19 01:38 97 H 93 03/28/19 01:36 94 H 94 03/28/19 01:33 94 H 95 03/28/19 01:32 103 H 125/62 03/28/19 01:30 99 H 94 03/28/19 01:28 98 H 94 03/28/19 01:23 98 H 94 03/28/19 01:18 97 H 95 03/28/19 01:17 99 H 120/62 03/28/19 01:13 98 H 95 03/28/19 01:08 94 H 95 03/28/19 01:05 37.0 C 18 03/28/19 01:03 90 96 03/28/19 01:02 96 H 137/83 03/28/19 00:58 90 95 03/28/19 00:57 98 H 94 03/28/19 00:53 97 H 96 03/28/19 00:48 85 145/89 H 96 03/28/19 00:46 95 H 94 03/28/19 00:43 98 H 95 03/28/19 00:41 99 H 94 03/28/19 00:38 95 H 95 03/28/19 00:36 94 H 94 03/28/19 00:33 86 131/69 96 03/28/19 00:30 99 H 94 03/28/19 00:28 96 H 95 03/28/19 00:23 97 H 95 03/28/19 00:20 96 H 94 03/28/19 00:18 92 H 96 03/28/19 00:17 90 141/70 H 03/28/19 00:13 96 H 94 03/28/19 00:08 95 H 94 03/28/19 00:03 95 H 95 03/28/19 00:02 96 H 139/72 03/27/19 23:58 103 H 93 03/27/19 23:57 95 H 94 03/27/19 23:53 94 H 95 03/27/19 23:52 89 94 03/27/19 23:48 97 H 95 03/27/19 23:47 91 H 135/67 03/27/19 23:44 92 H 94 03/27/19 23:43 91 H 95 03/27/19 23:38 91 H 95 03/27/19 23:37 97 H 94 03/27/19 23:33 95 H 96 03/27/19 23:32 93 H 130/68 03/27/19 23:28 95 H 96 03/27/19 23:23 92 H 96 03/27/19 23:18 94 H 96 03/27/19 23:17 105 H 142/78 H 03/27/19 23:16 103 H 93 03/27/19 23:13 93 H 96 03/27/19 23:08 109 H 97 03/27/19 23:03 101 H 136/73 98 03/27/19 23:02 37.0 C 18 03/27/19 22:58 96 H 96 03/27/19 22:53 97 H 95 03/27/19 22:48 99 H 95 03/27/19 22:47 98 H 121/64 94 03/27/19 22:43 97 H 98 03/27/19 22:38 94 H 95 03/27/19 22:37 98 H 93 03/27/19 22:33 94 H 95 03/27/19 22:32 96 H 127/72 03/27/19 22:31 84 94 03/27/19 22:28 99 H 97 03/27/19 22:25 96 H 94 03/27/19 22:23 110 H 99 03/27/19 22:18 93 H 97 03/27/19 22:17 93 H 133/69 03/27/19 22:13 95 H 95 03/27/19 22:08 92 H 95 03/27/19 22:03 95 H 98 03/27/19 22:02 103 H 135/70 03/27/19 21:58 96 H 96 03/27/19 21:53 95 H 97 03/27/19 21:49 111 H 93 03/27/19 21:48 103 H 96 03/27/19 21:47 101 H 142/74 H 03/27/19 21:43 99 H 96 03/27/19 21:38 99 H 96 03/27/19 21:36 106 H 93 03/27/19 21:33 104 H 141/74 H 96 03/27/19 21:30 36.8 C 18 01/31/20 21:28 102 H 96 03/27/19 21:23 100 H 97 03/27/19 21:18 95 H 98 03/27/19 21:17 95 H 139/75 03/27/19 21:13 92 H 98 03/27/19 21:08 102 H 97 03/27/19 21:03 89 99 03/27/19 21:02 96 H 143/73 H 03/27/19 20:58 96 H 98 03/27/19 20:53 94 H 98 03/27/19 20:48 102 H 96 03/27/19 20:47 98 H 138/74 03/27/19 20:43 97 H 96 03/27/19 20:38 102 H 99 03/27/19 20:35 108 H 139/80 03/27/19 20:33 98 H 100 03/27/19 20:28 106 H 100 03/27/19 20:23 105 H 99 03/27/19 20:18 101 H 99 03/27/19 20:17 97 H 138/69 03/27/19 20:13 100 H 100 03/27/19 20:08 104 H 100 03/27/19 20:03 104 H 100 03/27/19 20:02 95 H 135/70 03/27/19 19:58 101 H 100 03/27/19 19:53 99 H 100 03/27/19 19:48 105 H 99 03/27/19 19:47 100 H 146/83 H 03/27/19 19:43 100 H 99 03/27/19 19:38 101 H 100 03/27/19 19:33 101 H 157/80 H 100 03/27/19 19:28 97 H 100 03/27/19 19:23 102 H 97 03/27/19 19:20 37.2 C 18 03/27/19 19:18 104 H 96 03/27/19 19:17 99 H 144/79 H 03/27/19 19:13 105 H 96 03/27/19 19:08 96 H 96 03/27/19 19:03 97 H 95 03/27/19 19:02 100 H 142/76 H 03/27/19 18:58 97 H 96 03/27/19 18:53 98 H 95 03/27/19 18:50 97 H 94 03/27/19 18:48 99 H 96 03/27/19 18:47 98 H 142/75 H 03/27/19 18:43 91 H 95 03/27/19 18:38 96 H 96 03/27/19 18:33 98 H 96 03/27/19 18:32 105 H 136/68 03/27/19 18:28 96 H 98 03/27/19 18:25 36.8 C 22 03/27/19 18:23 91 H 98 03/27/19 18:18 99 H 97 03/27/19 18:17 96 H 132/70 03/27/19 18:13 91 H 97 03/27/19 18:11 91 H 140/67 03/27/19 18:08 93 H 97 03/27/19 18:03 97 H 99 03/27/19 18:02 94 H 192/77 H 03/27/19 17:58 91 H 97 03/27/19 17:53 100 H 98 03/27/19 17:48 91 H 99 03/27/19 17:47 158/72 H 03/27/19 17:43 94 H 99 03/27/19 17:38 99 H 99 03/27/19 17:33 97 H 99 03/27/19 17:32 100 H 153/74 H 03/27/19 17:28 96 H 99 03/27/19 17:23 97 H 98 03/27/19 17:18 95 H 99 03/27/19 17:17 101 H 160/74 H 03/27/19 17:13 94 H 100 03/27/19 17:08 97 H 100 03/27/19 17:03 92 H 99 03/27/19 17:02 93 H 150/65 H 03/27/19 16:58 96 H 100 03/27/19 16:53 96 H 99 03/27/19 16:48 99 H 100 03/27/19 16:47 101 H 153/74 H 91 03/27/19 16:43 98 H 100 03/27/19 16:38 96 H 100 03/27/19 16:37 91 H 178/79 H 03/27/19 16:36 95 H 180/93 H 03/27/19 16:33 96 H 96 03/27/19 16:30 36.7 C 22 03/27/19 16:28 100 H 100 03/27/19 16:23 98 H 136/80 100 03/27/19 16:18 114 H 98 03/27/19 16:15 22 03/27/19 16:13 100 H 98 03/27/19 16:08 95 H 99 03/27/19 16:03 102 H 98 03/27/19 16:02 98 H 134/70 03/27/19 15:58 100 H 98 03/27/19 15:53 101 H 98 03/27/19 15:48 105 H 98 03/27/19 15:47 111 H 141/67 H 03/27/19 15:43 100 H 98 03/27/19 15:38 112 H 97 03/27/19 15:33 110 H 132/65 97 03/27/19 15:30 22 03/27/19 15:28 107 H 97 03/27/19 15:23 103 H 97 03/27/19 15:18 112 H 99 03/27/19 15:17 100 H 123/63 03/27/19 15:13 99 H 99 03/27/19 15:08 104 H 99 03/27/19 15:03 107 H 99 03/27/19 15:02 101 H 125/65 03/27/19 15:00 22 03/27/19 14:58 104 H 99 03/27/19 14:53 103 H 99 03/27/19 14:48 112 H 135/74 99 03/27/19 14:43 99 H 98 03/27/19 14:38 114 H 97 03/27/19 14:33 104 H 98 03/27/19 14:31 102 H 134/67 89 L 03/27/19 14:28 101 H 132/63 97 03/27/19 14:26 104 H 129/63 03/27/19 14:24 101 H 131/65 03/27/19 14:23 106 H 98 03/27/19 14:22 100 H 136/68 03/27/19 14:20 103 H 141/72 H 03/27/19 14:18 106 H 137/71 98 03/27/19 14:13 96 H 97 03/27/19 14:10 110 H 174/91 H 03/27/19 14:08 113 H 99 03/27/19 14:03 101 H 100 03/27/19 13:58 98 H 100 03/27/19 13:11 22 03/27/19 11:53 87 135/79 03/27/19 11:49 36.8 C 22 03/27/19 11:41 22 03/27/19 10:50 90 144/81 H 03/27/19 10:48 22 03/27/19 10:30 22 03/27/19 10:00 22 Transfer of Care Handoff Completed per policy Notes Mental Status: alert / awake / arousable and participated in evaluation Nausea / Vomiting: adequately controlled Pain: adequately controlled Airway Patency, RR, SpO2: stable & adequate BP & HR: stable & adequate Hydration State: stable & adequate Neuraxial Anesthesia: was administered and sensory block is resolving Anesthetic Complications: no major complications apparent and Pt Satisfied with anesthetic care Notes: epidural pulled at end of case with tip intact. no complications
[2019-03-28] MEDS: KETOROLAC 30 MG/ML VIAL IV PRN ×2 (10:54→21:42)
[2019-03-28] MEDS: OXYTOCIN 20 UNITS in LACTATED RINGER'S 1,000 ML IV SCH ×2 (11:25→19:12)
[2019-03-28] MEDS: AMOXICILLIN 500 MG CAP PO SCH ×3 (11:33→19:12)
[2019-03-28] MEDS ORDERED: IPRATROPIUM BROMIDE/ALBUTEROL respimat INH INH PRN (12:22)
[2019-03-28] MEDS ORDERED: ALBUTEROL HFA 8 GM INHALER INH PRN (12:22)
[2019-03-28] MEDS: SIMETHICONE 80 MG CHEW PO SCH ×3 (13:47→19:12)
[2019-03-28] MEDS ORDERED: BUDESONIDE/FORMOTEROL FUMARATE 160/4.5 60 PUFFS/INHALER INH SCH (21:00)
[2019-03-28] MEDS: NICOTINE 14 MG/24 HR PATCH TD SCH (21:07)
[2019-03-28] MEDS: DOCUSATE SODIUM 100 MG CAP PO SCH (21:42)
[2019-03-29] MEDS ORDERED: DiphenhydrAMINE HCL 50 MG/ML VIAL IV PRN (02:26)
[2019-03-29] MEDS ORDERED: ONDANSETRON INJ 2 MG/ML 2 ML VIAL IV PRN (02:26)
[2019-03-29] MEDS ORDERED: PROMETHAZINE HCL 25 MG in SODIUM CHLORIDE 0.9% 50 ML IV PRN (02:26)
[2019-03-29] MEDS ORDERED: KETOROLAC 30 MG/ML VIAL IV PRN (02:26)
[2019-03-29] MEDS ORDERED: DC INTRASPINAL MORPHINE ONE (02:26)
[2019-03-29] MEDS: IBUPROFEN 600 MG TAB PO PRN ×4 (02:35→18:12)
[2019-03-29 06:30] LABS: Basophils # (auto) 0.01 K/uL (0-0.2); Basophils % (auto) 0.1 %; Hematocrit (blood only) 34.2 % (37-47); Hemoglobin 11.4 g/dL (12.0-16.0); Immature Granulocytes # (auto) 0.06 K/uL (0.00-0.02); Immature Granulocytes % (auto) 0.5 %; Lymphocytes # (auto) 2.75 K/uL (1.2-3.4); Mean Corpuscular Hemoglobin 27.9 pg (25-34); Mean Corpuscular Hgb Conc 33.3 g/dL (32-36); Mean Corpuscular Volume 83.8 fL (80-100); Mean Platelet Volume 9.7 fL (7.4-10.4); Monocytes # (auto) 1.32 K/uL (0.11-0.59); Monocytes % (auto) 10.6 %; Neutrophils # (auto) 8.37 K/uL (1.4-6.5); Neutrophils % (auto) 66.8 %; Platelet Count 287 K/uL (130-400); RDW Coefficient of Variation 15.8 % (11.5-14.5); RDW Standard Deviation 48.3 fL (36.4-46.3); Red Blood Count 4.08 M/uL (4.2-5.4); White Blood Count 12.51 K/uL (4.8-10.8)
[2019-03-29] MEDS: AMOXICILLIN 500 MG CAP PO SCH ×3 (08:54→20:54)
[2019-03-29] MEDS: SIMETHICONE 80 MG CHEW PO SCH ×4 (08:54→20:54)
[2019-03-29] MEDS: DOCUSATE SODIUM 100 MG CAP PO SCH ×2 (08:54→20:53)
[2019-03-29] MEDS: FAMOTIDINE 20 MG TAB PO SCH (08:54)
[2019-03-29] MEDS: UMECLIDINIUM BROMIDE 62.5MCG/BLISTER 7 PUFFS/INHALER INH SCH (08:55)
[2019-03-29] MEDS: FLUTICASONE/VILANTEROL 200/25MCG 14 PUFFS/INHALER INH SCH (08:56)
[2019-03-29] MEDS ORDERED: NON-FORMULARY MEDICATION (Tiotropium Bromide [Spiriva Respimat] 2 PUFFS) INH SCH (09:00)
--- NOTE | 2019-03-29 10:54 | Obstetrical Progress Note ---
Date of Service March 29, 2019 Assessment & Plan (1) H/O section: doing well. routine care. cont her asthma meds. Day #:: 1 Subjective Ambulation: ambulating normally Voiding: no voiding problems Passing Gas:: Yes Diet Tolerance:: regular diet Lochia:: Small Feeding Type:: breast feeding no issues with pain, using motrin alone. feels well. Physical Exam Constitutional WD/WN, vitals as above Respiratory normal respiratory effort, lungs clear to auscultation Cardiovascular Rate/Rhythm: regular rate and regular rhythm Gastrointestinal (Abdomen) Inspection/Auscultation: abdomen normal to inspection and + abdominal surgical incision (NATANAEL dressing) Percussion/Palpation: abdomen soft; abdomen nontender and no guarding Fundus firm 2cm down Musculoskeletal nt calves tr edema Neurologic grossly normal Psychiatric A+Ox3, euthymic affect Results & Data Vital Signs (Past 12 Hours) Vital Signs Temp Pulse Resp BP Pulse Ox 03/29/19 07:30 97.9 F 87 20 119/83 94 03/29/19 03:45 97.7 F 85 20 119/83 95 03/29/19 02:45 20 95 03/29/19 01:30 20 97 03/29/19 00:30 20 94 03/28/19 23:55 97.7 F 79 20 126/83 95
[2019-03-29] MEDS: NICOTINE 14 MG/24 HR PATCH TD SCH (13:59)
[2019-03-29] MEDS ORDERED: Nursing to Pharmacy Communication ONE (14:01)
[2019-03-29 14:55] LABS: Marijuana Quant, GCMS Urine 298 ng/mL (<5)
[2019-03-29] MEDS: OXYCODONE/ACETAMINOPHEN 5mg/325mg TAB PO PRN (22:55)
[2019-03-30 06:08] LABS: Hematocrit (blood only) 32.1 % (37-47); Hemoglobin 10.6 g/dL (12.0-16.0)
--- NOTE | 2019-03-30 06:24 | Obstetrical Progress Note ---
Date of Service March 30, 2019 Assessment & Plan (1) Status post : Pauline is a on POD 2 after low transverse C/S due to failure to progress - GBS -, Rh -, Rubella immune - baby's blood type Rh -, Rhogam not necessary - BP currently normal at 126/79; Systolic Max in past 24 hours: 145. Diastolic max in past 24 hours: 88. continue to monitor -patient is doing clinically well Patient recovering normally. - After discharge will have [address] Richard. Supervising Physician Co-Signing Physician Notes Resident Physician Supervision Note: I was present with Dr. Huston during the history and exam. I discussed the case with the resident and agree with the findings and plan as documented in the note. Any exceptions or clarifications are listed here: tearful standing by romulo chalinomayte, says its incisional pain and due for percocet. feels her asthma control and her breathing is ok for her. no cp or sob. eating, voiding and ambul well. she is taking amox for sinus infection sx per Dr. Richard earlier order. concerned about swelling but reminded her she was an induction of labor using pitocin before being declared ftp which can result in fluid retention. bps are normal. will use po pain meds for pain control. routine care otherwise. Documented By: Saundra Eaton MD, FACOG Subjective Ambulation: ambulating normally Voiding: no voiding problems Passing Gas:: Yes Diet Tolerance:: regular diet Lochia:: Small Feeding Type:: breast feeding Review of Systems Constitutional: no fever, no chills and no sweats Respiratory: no cough and no dyspnea Cardiovascular: no chest pain and no palpitations Gastrointestinal: no abdominal pain (no RUQ pain), no nausea and no vomiting Genitourinary: no dysuria and no urinary frequency Neurologic: no headache(s) no changes in vision Physical Exam Constitutional: WD/WN, vitals as above no acute distress Respiratory: normal respiratory effort, lungs clear to auscultation does not use accessory muscles Auscultation: no crackles, no rhonchi, no wheezes and no pleural rub Cardiovascular: Rate/Rhythm: regular rate and regular rhythm Heart Sounds: normal S1 and normal S2; no gallop, no murmur and no cardiac rub Extremities: + pedal edema; no calf tenderness Gastrointestinal (Abdomen): Inspection/Auscultation: normal bowel sounds; abdomen not distended Percussion/Palpation: abdomen soft surgical incision: tasha dressing in place; minimal dried blood visible; no warmth; appropriate post-op tenderness Genitourinary: Uterus: fundus firm, palpable 2 cm below the umbilicus Results & Data Vital Signs (Past 12 Hours) Vital Signs Temp Pulse Resp BP 03/29/19 23:11 36.4 C L 84 18 126/79 03/29/19 20:58 36.6 C 88 18 145/88 H Resident Activity Tracking Resident Involvement: Resident Care Provided Care Provided: OB Delivery
[2019-03-30] MEDS: OXYCODONE/ACETAMINOPHEN 5mg/325mg TAB PO PRN ×2 (07:14→23:23)
[2019-03-30] MEDS: IBUPROFEN 600 MG TAB PO PRN ×4 (07:16→20:59)
[2019-03-30] MEDS: UMECLIDINIUM BROMIDE 62.5MCG/BLISTER 7 PUFFS/INHALER INH SCH (07:18)
[2019-03-30] MEDS: FLUTICASONE/VILANTEROL 200/25MCG 14 PUFFS/INHALER INH SCH (07:18)
[2019-03-30] MEDS: DOCUSATE SODIUM 100 MG CAP PO SCH ×2 (08:07→20:58)
[2019-03-30] MEDS: SIMETHICONE 80 MG CHEW PO SCH ×4 (08:07→20:58)
[2019-03-30] MEDS: FAMOTIDINE 20 MG TAB PO SCH (08:08)
[2019-03-30] MEDS: AMOXICILLIN 500 MG CAP PO SCH ×3 (08:09→20:58)
[2019-03-30] MEDS: NICOTINE 14 MG/24 HR PATCH TD SCH (08:10)
[2019-03-31] MEDS: IBUPROFEN 600 MG TAB PO PRN (05:55)
[2019-03-31] MEDS: OXYCODONE/ACETAMINOPHEN 5mg/325mg TAB PO PRN (05:55)
--- NOTE | 2019-03-31 06:28 | Obstetrical Progress Note ---
Date of Service March 31, 2019 Assessment & Plan (1) Status post : Pauline is a on POD 3 after low transverse C/S due to failure to progress - GBS -, Rh -, Rubella immune - baby's blood type Rh -, Rhogam not necessary - vitals reviewed and WNL - patient with a history of asthma, on home inhaler regimen - continue amoxicillin for presumed bacterial sinusitis - patient is doing clinically well Discharge instructions reviewed - After discharge will have [address] Richard. Supervising Physician Co-Signing Physician Notes Resident Physician Supervision Note: I was present with Dr. Chambers during the history and exam. I discussed the case with the resident and agree with the findings and plan as documented in the note. Any exceptions or clarifications are listed here: [None] Documented By: Jorge Michele MD, FACOG Subjective Ambulation: ambulating normally Voiding: no voiding problems Passing Gas:: Yes Diet Tolerance:: regular diet Lochia:: Small Feeding Type:: breast feeding Review of Systems Constitutional: no fever, no chills and no sweats Respiratory: no cough and no dyspnea Cardiovascular: no chest pain and no palpitations Gastrointestinal: no nausea and no vomiting Genitourinary: no dysuria and no urinary frequency Neurologic: no headache(s) no changes in vision Physical Exam Constitutional: WD/WN, vitals as above no acute distress Respiratory: normal respiratory effort; no respiratory distress and does not use accessory muscles Auscultation: + wheezes (expiratory; diffusely throughout all lung ledesma); no crackles, no rhonchi and no pleural rub Cardiovascular: Rate/Rhythm: regular rate and regular rhythm Heart Sounds: normal S1 and normal S2; no gallop, no murmur and no cardiac rub Extremities: + pedal edema; no calf tenderness Gastrointestinal (Abdomen): Inspection/Auscultation: normal bowel sounds; abdomen not distended Percussion/Palpation: abdomen soft surgical incision: NATANAEL dressing in place; minimal dried blood visible; no warmth; appropriate post-op tenderness Genitourinary: Uterus: fundus firm, palpable 2 cm below the umbilicus Results & Data Vital Signs (Past 12 Hours) Vital Signs Temp Pulse Resp BP Pulse Ox 03/30/19 23:15 36.5 C 78 18 140/84 97 03/30/19 21:14 36.5 C 86 20 135/86 Resident Activity Tracking Resident Involvement: Resident Care Provided Care Provided: OB Delivery
[2019-03-31] MEDS: AMOXICILLIN 500 MG CAP PO SCH (08:07)
[2019-03-31] MEDS: FAMOTIDINE 20 MG TAB PO SCH (08:07)
[2019-03-31] MEDS: DOCUSATE SODIUM 100 MG CAP PO SCH (08:07)
[2019-03-31] MEDS: SIMETHICONE 80 MG CHEW PO SCH (08:07)
[2019-03-31] MEDS: UMECLIDINIUM BROMIDE 62.5MCG/BLISTER 7 PUFFS/INHALER INH SCH (08:08)
[2019-03-31] MEDS: FLUTICASONE/VILANTEROL 200/25MCG 14 PUFFS/INHALER INH SCH (08:09)
[2019-03-31] MEDS: NICOTINE 14 MG/24 HR PATCH TD SCH (08:10)
== END 2019-03-31 10:58 | disposition home or self-care (01) | DRG 787 ==
LOC: 4S1 19:27 → 4S2 03-28 11:50